=== PATIENT | female | born 1980 | race Caucasian/White ===

== ENCOUNTER 2020-03-25 11:15 | Emergency (ER) | payer OTHER, SELFPAY ==
[2020-03-25 12:34] VITALS: BP 140/74; PULSE 75; RESP 14; TEMP 36.6; O2SAT 99; BMI 22.7
--- NOTE | 2020-03-25 12:54 | PC.NURSE ---
No c spine tenderness. no abrasions/bruising to face. states l side of face is painful and l side of body. Equal grasps. No neuro deficits.
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
[2020-03-25] MEDS: LORazepam 0.5 MG TABLET PO (13:54)
[2020-03-25 14:17] LABS: UPreg QC Valid YES; Urine Pregnancy NEGATIVE (NEGATIVE)
[2020-03-25 15:01] VITALS: BP 114/62; PULSE 67; RESP 16; TEMP 37; O2SAT 96
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
== END 2020-03-25 16:45 | disposition home or self-care (01) ==
PROVIDERS: Nurse Practitioner Primary Care; Emergency Provider Emergency Medicine; PCP Internal Medicine
DX: S16.1XXA Strain of muscle, fascia and tendon at neck level, initial encounter (principal); S00.90XA Unspecified superficial injury of unspecified part of head, initial encounter; M54.2 Cervicalgia; G44.309 Post-traumatic headache, unspecified, not intractable; V43.52XA Car driver injured in collision with other type car in traffic accident, initial encounter; Y93.9 Activity, unspecified; Y92.410 Unspecified street and highway as the place of occurrence of the external cause
CPT/HCPCS: 70450; 72125; 81025; 99283; 99284

== ENCOUNTER 2020-04-12 10:06 | Outpatient (REF) | payer OTHER, SELFPAY ==
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
== END 2020-04-12 10:07 | disposition home or self-care (01) ==
LOC: HO.HMGCX 10:06
PROVIDERS: PCP Internal Medicine; Visit Provider Nurse Practitioner Family
DX: M54.2 Cervicalgia (principal)
CPT/HCPCS: 72040

== ENCOUNTER 2020-04-12 13:08 | Emergency (ER) | payer OTHER, SELFPAY ==
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
[2020-04-12 13:27] VITALS: BP 129/78; PULSE 69; RESP 14; TEMP 36.9; O2SAT 97; BMI 23.5
== END 2020-04-12 14:15 | disposition home or self-care (01) ==
PROVIDERS: Emergency Provider Emergency Medicine; PCP Internal Medicine
DX: S16.1XXA Strain of muscle, fascia and tendon at neck level, initial encounter (principal); M54.2 Cervicalgia; M54.5 Low back pain; V43.52XA Car driver injured in collision with other type car in traffic accident, initial encounter; Y93.9 Activity, unspecified; Y92.410 Unspecified street and highway as the place of occurrence of the external cause; Y99.9 Unspecified external cause status; Z79.899 Other long term (current) drug therapy
CPT/HCPCS: 99283

== ENCOUNTER 2020-08-20 19:45 | Emergency (ER) | payer OTHER, SELFPAY ==
--- NOTE | ~2020-08-20 | XR_ITS ---
EXAMINATION: Left fifth digit. CLINICAL INFORMATION: Trauma. Laceration. COMPARISON: None TECHNIQUE: 3 views of the left fifth digit. FINDINGS: There is a bandage over the distal finger. There is a soft tissue laceration of the distal fifth finger. There is no radiopaque foreign body. There is no osseous abnormality. There is no fracture or dislocation. XR/XR finger LT min 2V IMPRESSION: Soft tissue laceration of the distal fifth finger. No radiopaque foreign body. No acute osseous abnormality.
[2020-08-20 19:46] VITALS: BP 141/75; PULSE 64; RESP 18; TEMP 36.8; O2SAT 100; BMI 23.0
--- NOTE | 2020-08-20 20:32 | ED.WOUNDLAC ---
HPI - Wound/Laceration General Chief Complaint: Wound/Laceration Stated Complaint: Finger lac Source: patient Mode of arrival: ambulatory Limitations: no limitations History of Present Illness HPI narrative: 40-year-old female with no significant past medical history presents with laceration to the left 5th finger. She was cutting vegetables, slipped with her dull knife and cut the tip of her finger. She was able to clean the wound and applied a pressure dressing however bleeding would not stop. It is unknown when her last Tdap vaccine given. She does not report any other concerning symptoms. Onset (ago): hour(s) (Within the hour of arrival) Extremity Location: left: hand (Fifth finger) Place: home Patient tetanus UTD: No Context: accidental Associated symptoms: pain Treatments prior to arrival: bandage Related Data Home Medications Medication Instructions Recorded Confirmed albuterol sulfate 90 mcg/actuation INHALATION 04/12/20 aerosol inhaler cephalexin 500 mg capsule 500 mg PO Q6H 04/12/20 fluticasone 55 mcg-salmeterol 14 1 inh INHALATION BID 04/12/20 mcg/actuation breath activated powder fluticasone propionate 50 INTRANASAL 04/12/20 mcg/actuation nasal spray,suspension lorazepam 0.5 mg tablet 0.5 mg PO 04/12/20 norethindrone (contraceptive) 0.35 mg PO 04/12/20 mg tablet Previous Rx's Medication Instructions Recorded cyclobenzaprine 10 mg PO TID PRN #20 tab 03/25/20 ibuprofen 800 mg PO Q8H PRN #30 tab 03/25/20 gjkmikronu-eqmhgpzfmugwr-hlbv 1 cap PO Q8H PRN #14 cap 04/12/20 [Fioricet] cyclobenzaprine 5 mg tablet 5 mg PO TID PRN #14 tab 04/12/20 lidocaine [Lidoderm] 1 patch TOPICAL DAILY #15 ea 04/12/20 naproxen 500 mg tablet 500 mg PO BID PRN #60 tab 04/12/20 ondansetron 4 mg disintegrating 4 mg PO Q6H PRN #20 tab 04/12/20 tablet ibuprofen 800 mg PO TID PRN #60 tab 08/20/20 Allergies Allergy/AdvReac Type Severity Reaction Status Date / Time acetaminophen [From TYLENOL] Allergy Unknown NAUSEA & Verified 04/12/20 09:31 VOMITING duloxetine [Cymbalta] Allergy Unknown diarrhea Verified 04/12/20 09:31 Review of Systems Review of Systems: Constitutional: No Fever, No Chills ENT/Mouth: No Ear Pain, No Hoarseness, No sore throat Eyes: No Eye Pain, No Swelling, No Redness, No Foreign Body Cardiovascular: No Chest Pain, No SOB Respiratory: No Cough, No Dyspnea Gastrointestinal: No Nausea, No Vomiting, No Diarrhea, No abdominal Pain Genitourinary: No Dysuria, No Hematuria Musculoskeletal: positive left finger pain, No Myalgias, No Joint Swelling Skin: Positive left finger laceration, No rash Neuro: No Weakness, No Numbness, No Paresthesias, No Loss of Consciousness, No Dizziness, No Headache Psych: No Anxiety/Panic, No Depression Heme/Lymph: no easy bruising, no Lymphadenopathy Endocrine: No Polyuria, No Polydipsia Yes all other systems are reviewed and are negative [facility] Past Medical History Attestation statement: The following information was validated with the patient. Source: old records reviewed Medical History Anxiety No known health problems Surgical History No pertinent past surgical history Family History Family History Father No problems noted. Mother No problems noted. Paternal Grandmother Diabetes mellitus Paternal Grandfather Diabetes mellitus Son No problems noted. Son No problems noted. Son No problems noted. Social History Social History Alcohol intake: never Smoking Status: Current every day smoker Smoked in Last 30 Days: No Substance Use Type: Marijuana Advance Directives: No Advance Directives Information Provided: Yes Physical Exam Vital Signs: Vital Signs: Last Vital Signs Temp 98.3 F 08/20/20 19:46 Pulse 64 08/20/20 19:46 Resp 18 08/20/20 19:46 BP 141/75 H 08/20/20 19:46 Pulse Ox 100 08/20/20 19:46 Body Mass Index 23.0 Appearance: Alert. Oriented X3. No acute distress. Eyes: Pupils equal, round and reactive to light. ENT: Pharynx normal. Neck: Normal inspection. Neck supple. CVS: Normal heart rate and rhythm. Pulses normal. Respiratory: No respiratory distress. Breath sounds normal. Abdomen: Soft and nontender. Skin: Positive 2 cm laceration to the tip of the left 5th finger, brisk capillary refill, no nail bed involvement. Skin warm and dry. Normal skin color. Normal skin turgor. Extremities: No lower extremity edema. Full range of motion to all extremities, no indication of tendon injury. Neuro: No motor deficit. No sensory deficit. Course Course Course Narrative: 40-year-old female with no significant past medical history presents with an accidental laceration to the left tip of her 5th finger. Plan of care is for x-ray and for laceration repair. Patient has brisk capillary refill and full range of motion without tendon injury to all digits. We will update Tdap vaccine today. X-ray negative for bone involvement and foreign body. Prepped and draped in sterile fashion. Patient tolerated procedure well. Please refer to procedure note for details. Approximately 30 minutes after laceration repair, patient continues to have full range of motion, no indication of tendon injury, brisk capillary refill to digits. Patient did verbalize understanding wound care, signs and symptoms indicating infection. Patient verbalized understanding of and agrees home. Procedures Laceration Laceration 1: Site: hand Side (If applicable): left Size (cm): 2 Description: linear Depth: simple, single layer Local Anesthetic: lidocaine 2% Amount of anesthesia used (mL): 2 Pre-repair: wound explored, irrigated extensively and deep structures intact Skin layer closed with: nylon Size (cm): 5-0 Number of sutures: 5 Technique: simple, interrupted MDM - Wound/Laceration Differential Diagnosis Differential diagnosis: Likely laceration Medical Records Attestation: I reviewed the patient's medical records. Imaging Data Fifth finger left: Attestation: I personally reviewed and interpreted this imaging study as follows: Radiologist's impression: EXAMINATION: Left fifth digit. CLINICAL INFORMATION: Trauma. Laceration. COMPARISON: None TECHNIQUE: 3 views of the left fifth digit. FINDINGS: There is a bandage over the distal finger. There is a soft tissue laceration of the distal fifth finger. There is no radiopaque foreign body. There is no osseous abnormality. There is no fracture or dislocation. XR/XR finger LT min 2V IMPRESSION: Soft tissue laceration of the distal fifth finger. No radiopaque foreign body. No acute osseous abnormality. Discharge Plan Discharge Clinical Impression: Finger laceration Qualifiers: Encounter type: initial encounter Finger: little finger Damage to nail status: without damage Foreign body presence: without foreign body Laterality: left Qualified Code(s): S61.217A - Laceration without foreign body of left little finger without damage to nail, initial encounter Patient Disposition: Home, Self-Care Instructions: Finger Laceration (ED) Additional Instructions: You were evaluated for laceration to the left 5th finger. We applied 5 sutures. Please monitor for signs and symptoms of infection. If you notice fevers, chills, and drainage, swelling, redness, or any other concerning symptoms please seek medical attention. Please return in 7-10 days to have sutures removed. Do not submerse your hand under water for lengthy periods of time. Please keep the area clean and dry. We updated your Tdap vaccine today. Please take Tylenol and Motrin as needed for pain management. We prescribed ibuprofen 800 mg every 8 hours as needed. Thank you for choosing this emergency department for evaluation. Please follow-up with primary care physician as needed. Return to the emergency department for any new, concerning, or worsening symptoms. Prescriptions: New ibuprofen 800 mg tablet 800 mg PO TID PRN (Reason: pain) Qty: 60 RF: 0 No Action cyclobenzaprine 10 mg tablet 10 mg PO TID PRN (Reason: muscle spasm) Qty: 20 RF: 0 ibuprofen 800 mg tablet 800 mg PO Q8H PRN (Reason: pain) Qty: 30 RF: 0 lidocaine [Lidoderm] 5 % adhesive patch,medicated 1 patch topical DAILY Qty: 15 RF: 0 [id number]-nvlsbrsjvcfyo-sfra [Fioricet] 50-300-40 mg capsule 1 cap PO Q8H PRN (Reason: headache ) Qty: 14 RF: 0 albuterol sulfate 90 mcg/actuation HFA aerosol inhaler inhalation RF: 0 fluticasone propion-salmeterol 55-14 mcg/actuation aerosol powdr breath activated 1 inh inhalation BID RF: 0 norethindrone (contraceptive) 0.35 mg tablet PO RF: 0 cephalexin 500 mg capsule 500 mg PO Q6H RF: 0 lorazepam 0.5 mg tablet 0.5 mg PO RF: 0 fluticasone propionate 50 mcg/actuation spray,suspension intranasal RF: 0 ondansetron 4 mg tablet,disintegrating 4 mg PO Q6H PRN (Reason: nausea and vomiting) Qty: 20 RF: 0 cyclobenzaprine 5 mg tablet 5 mg PO TID PRN (Reason: muscle spasm) Qty: 14 RF: 0 naproxen 500 mg tablet 500 mg PO BID PRN (Reason: pain) Qty: 60 RF: 0 Interventions: ED Discharge Assessment Last Done: 08/20/20 21:43 Discharge Date/Time: 08/20/20 21:27
[2020-08-20] MEDS: Lidocaine HCl 2 % MPF 5 ML VIAL SUBCUT (21:23)
[2020-08-20] MEDS: Ibuprofen 800 MG TABLET PO (21:31)
== END 2020-08-20 21:27 | disposition home or self-care (01) ==
PROVIDERS: Emergency Provider Internal Medicine; PCP Internal Medicine
DX: S61.217A Laceration without foreign body of left little finger without damage to nail, initial encounter (principal); M79.642 Pain in left hand; W26.0XXA Contact with knife, initial encounter; Y93.G3 Activity, cooking and baking; Y92.000 Kitchen of unspecified non-institutional (private) residence as the place of occurrence of the external cause; Y99.9 Unspecified external cause status; F17.200 Nicotine dependence, unspecified, uncomplicated; Z71.6 Tobacco abuse counseling; Z79.899 Other long term (current) drug therapy
CPT/HCPCS: 12001; 73140; 90471; 90715; 96372; 99284

== ENCOUNTER 2021-01-29 08:18 | Emergency (ER) | payer OTHER, SELFPAY ==
[2021-01-29 08:48] VITALS: BP 142/90; PULSE 80; RESP 17; TEMP 37.3; O2SAT 98; BMI 22.7
--- NOTE | 2021-01-29 09:07 | ED_ITS ---
HPI - General Adult General Chief complaint: General Medical Stated complaint: rash Time Seen by Provider: 01/29/21 09:01 Source: patient Mode of arrival: ambulatory History of Present Illness HPI narrative: 40 y.o. F presenting to the ED with concern for rash x 4 days. 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 SHe did buy a facial powder but the irritation started prior to that. SHe has been itching and at 3 a.m. noticed increased swelling to her face from the itching. She did drink coffee and denies loss of taste, difficulty swallowing. At times her voice gets hoarse. Related Data Home Medications Medication Instructions Recorded Confirmed albuterol sulfate 90 mcg/actuation INHALATION 04/12/20 aerosol inhaler cephalexin 500 mg capsule 500 mg PO Q6H 04/12/20 fluticasone 55 mcg-salmeterol 14 1 inh INHALATION BID 04/12/20 mcg/actuation breath activated powder fluticasone propionate 50 INTRANASAL 04/12/20 mcg/actuation nasal spray,suspension lorazepam 0.5 mg tablet 0.5 mg PO 04/12/20 norethindrone (contraceptive) 0.35 mg PO 04/12/20 mg tablet Previous Rx's Medication Instructions Recorded cyclobenzaprine 10 mg tablet 10 mg PO TID PRN #20 tab 03/25/20 ibuprofen 800 mg tablet 800 mg PO Q8H PRN #30 tab 03/25/20 qmpprisyym-rvacmubfiwjac-efcduawt 1 cap PO Q8H PRN #14 cap 04/12/20 50 mg-300 mg-40 mg capsule (Fioricet) cyclobenzaprine 5 mg tablet 5 mg PO TID PRN #14 tab 04/12/20 lidocaine 5 % topical patch 1 patch TOPICAL DAILY #15 ea 04/12/20 (Lidoderm) naproxen 500 mg tablet 500 mg PO BID PRN #60 tab 04/12/20 ondansetron 4 mg disintegrating 4 mg PO Q6H PRN #20 tab 04/12/20 tablet ibuprofen 800 mg tablet 800 mg PO TID PRN #60 tab 08/20/20 cephalexin 500 mg capsule 500 mg PO QID 7 Days #28 cap 01/29/21 diphenhydramine-zinc acetate 1 1 appl TOPICAL QID PRN #28.3 g 01/29/21 %-0.1 % topical cream (Benadryl Itch Stopping) Allergies Allergy/AdvReac Type Severity Reaction Status Date / Time acetaminophen [From TYLENOL] Allergy Unknown NAUSEA & Verified 04/12/20 09:31 VOMITING duloxetine [Cymbalta] Allergy Unknown diarrhea Verified 04/12/20 09:31 Review of Systems Constitutional: Constitutional: Denies fever(s) and Denies headache(s) Eyes: Eyes: Reports no additional eye complaints ENT: Denies dysphagia, Denies headache(s) and Denies nasal congestion Comments: facial swelling Cardiovascular: Cardiovascular: Denies chest pain and Denies dyspnea Respiratory: Respiratory: Denies dyspnea Gastrointestinal: Gastrointestinal: Denies abdominal pain and Denies dysphagia Genitourinary: Genitourinary: Reports no additional female genitourinary complaints Musculoskeletal: Musculoskeletal: Denies arthralgias Neurologic: Denies confusion and Denies headache(s) Psychiatric: Psychiatric: Denies confusion Hematologic/Lymphatic: Hematologic/Lymphatic: Denies easy bleeding PMFSH Past Medical History Medical History Anxiety No known health problems Surgical History No pertinent past surgical history Family History Family History Father No problems noted. Mother No problems noted. Paternal Grandmother Diabetes mellitus Paternal Grandfather Diabetes mellitus Son No problems noted. Son No problems noted. Son No problems noted. Social History Social History (Updated 01/29/21 @ 09:19 by LAILA Serrato) Alcohol intake: never Patient Tobacco Use Status: Current everyday Tobacco user Substance Use Type: Marijuana Advance Directives: No Advance Directives Information Provided: No Patient : No Current occupation: works as a [employer] Physical Exam Vital Signs: Vital Signs: Last Vital Signs Temp 99.1 F 01/29/21 08:48 Pulse 80 01/29/21 08:48 Resp 17 01/29/21 08:48 BP 142/90 H 01/29/21 08:48 Pulse Ox 98 01/29/21 08:48 Body Mass Index 22.7 Const: Other: sitting upright in chair General: No confusion Orientation/consciousness: patient oriented x3 and No confusion HENMT: Other: scab marking to left temporal scalp with some redness, no fluctuance, no draianage or discharge multiple scab markings to mandible and one on central forehead, some redness surrounding lesions on mandible, not uticarial, not vesicular, no oral lesions, no perioral lesions, no weeping, no petechiae no pharyngeal erythema or lesions, no tonsilar hypertrophy Ears: hearing grossly normal bilaterally Eyes: Pupils: Equal, round and reactive pupils present Neck: Neck: Yes full ROM, Yes no lymphadenopathy, Yes no meningeal signs and Yes trachea midline Resp: Other: no stridor or wheezing Effort & Inspection: normal respiratory effort and able to speak in complete sentences Cardio: Other: normal peripheral perfusion GI: Inspection: No distended Skin: Other: as noted on facial exam Neuro: General: patient oriented x3, no meningeal signs and No confusion Cranial nerves: Yes Equal, round and reactive pupils present Extrem: General: Yes full ROM Medical Decision Making MDM Narrative Medical decision making narrative: 40 y.o. F presenting to the ED with facial rash and irritation, + itching no pain, noticed increased facial swelling since 3 a.m. no airway compromise, no difficulty swallowing or speaking VS significant for initial tachycardia most likely secondary to her anxiety- pt. is anxious, otherwise hemodynamically stable NO petechial rash, no signs of systemic illness doubt menningitis. No evidence of Geovani Gaurav syndrome, no oral involvement, no involvement of palms or soles. NO systemic signs of illness, afebrile. No uticarial rash to suggest allergic rxn. No airway involvement, airway patent, speaking in full clear sentences, no stridor or wheezing. No swelling to suggest an abscess. No evidence of ludiwgs. Doubt [employer], RPA-pharynx is WNL. Pt. has some lesions with surrounding erythema to the inferior aspect of her mandible, will tx with antibiotics and topical benadryl cream for itching. -Discussed strict return precautions with her - avoid itching. Discharge Plan Discharge Clinical Impression: Rash Patient Disposition: Home, Self-Care Instructions: Acute Rash (ED) Additional Instructions: PLease return to the emergency department if symptoms were to worsen, increased swelling, difficulty swallowing, pain, fevers, worsening rash, or any other concerning symptoms. Use benadryl cream on the areas to help with the itching. Take antibiotics to prevent superimposed infection. Prescriptions: New Benadryl Itch Stopping 1-0.1 % cream 1 appl topical QID PRN (Reason: itching) Qty: 28.3 RF: 0 cephalexin 500 mg capsule 500 mg PO QID 7 Days Qty: 28 RF: 0 No Action cyclobenzaprine 10 mg tablet 10 mg PO TID PRN (Reason: muscle spasm) Qty: 20 RF: 0 ibuprofen 800 mg tablet 800 mg PO Q8H PRN (Reason: pain) Qty: 30 RF: 0 lidocaine [Lidoderm] 5 % adhesive patch,medicated 1 patch topical DAILY Qty: 15 RF: 0 cxswiccbrs-plvwoezclwseu-yuaz [Fioricet] 50-300-40 mg capsule 1 cap PO Q8H PRN (Reason: headache ) Qty: 14 RF: 0 ibuprofen 800 mg tablet 800 mg PO TID PRN (Reason: pain) Qty: 60 RF: 0 albuterol sulfate 90 mcg/actuation HFA aerosol inhaler inhalation RF: 0 fluticasone propion-salmeterol 55-14 mcg/actuation aerosol powdr breath activated 1 inh inhalation BID RF: 0 norethindrone (contraceptive) 0.35 mg tablet PO RF: 0 cephalexin 500 mg capsule 500 mg PO Q6H RF: 0 lorazepam 0.5 mg tablet 0.5 mg PO RF: 0 fluticasone propionate 50 mcg/actuation spray,suspension intranasal RF: 0 ondansetron 4 mg tablet,disintegrating 4 mg PO Q6H PRN (Reason: nausea and vomiting) Qty: 20 RF: 0 cyclobenzaprine 5 mg tablet 5 mg PO TID PRN (Reason: muscle spasm) Qty: 14 RF: 0 naproxen 500 mg tablet 500 mg PO BID PRN (Reason: pain) Qty: 60 RF: 0 Interventions: ED Discharge Assessment Last Done: 01/29/21 09:23 Discharge Date/Time: 01/29/21 09:23
== END 2021-01-29 09:23 | disposition home or self-care (01) ==
PROVIDERS: Emergency Provider Emergency Medicine; PCP Internal Medicine
DX: L50.0 Allergic urticaria (principal); F17.200 Nicotine dependence, unspecified, uncomplicated; Z71.6 Tobacco abuse counseling; Z79.899 Other long term (current) drug therapy
CPT/HCPCS: 99283

== ENCOUNTER 2021-03-10 19:09 | Emergency (ER) | payer OTHER, SELFPAY ==
[2021-03-10 19:42] VITALS: BP 129/79; PULSE 74; RESP 16; TEMP 36.2; O2SAT 99; BMI 23.0
--- NOTE | 2021-03-10 20:18 | ED.WOUNDLAC ---
HPI - Wound/Laceration General Chief Complaint: Wound/Laceration Stated Complaint: Finger lac Time Seen by Provider: 03/10/21 20:18 Source: patient Mode of arrival: ambulatory Limitations: no limitations History of Present Illness HPI narrative: Patient was cutting an apple and got left index finger sliced off with loss of skin no deeper injury bleeding Well controlled Related Data Home Medications Medication Instructions Recorded Confirmed albuterol sulfate 90 mcg/actuation INHALATION 04/12/20 aerosol inhaler cephalexin 500 mg capsule 500 mg PO Q6H 04/12/20 fluticasone 55 mcg-salmeterol 14 1 inh INHALATION BID 04/12/20 mcg/actuation breath activated powder fluticasone propionate 50 INTRANASAL 04/12/20 mcg/actuation nasal spray,suspension norethindrone (contraceptive) 0.35 mg PO 04/12/20 mg tablet Previous Rx's Medication Instructions Recorded cyclobenzaprine 10 mg tablet 10 mg PO TID PRN #20 tab 03/25/20 ibuprofen 800 mg tablet 800 mg PO Q8H PRN #30 tab 03/25/20 [id number]-wthpqjjilsdoy-kuwcmseb 1 cap PO Q8H PRN #14 cap 04/12/20 50 mg-300 mg-40 mg capsule (Fioricet) cyclobenzaprine 5 mg tablet 5 mg PO TID PRN #14 tab 04/12/20 lidocaine 5 % topical patch 1 patch TOPICAL DAILY #15 ea 04/12/20 (Lidoderm) naproxen 500 mg tablet 500 mg PO BID PRN #60 tab 04/12/20 ondansetron 4 mg disintegrating 4 mg PO Q6H PRN #20 tab 04/12/20 tablet ibuprofen 800 mg tablet 800 mg PO TID PRN #60 tab 08/20/20 cephalexin 500 mg capsule 500 mg PO QID 7 Days #28 cap 01/29/21 diphenhydramine-zinc acetate 1 1 appl TOPICAL QID PRN #28.3 g 01/29/21 %-0.1 % topical cream (Benadryl Itch Stopping) prednisone 20 mg tablet 20 mg PO .COMPLEX #18 tab 01/30/21 sulfamethoxazole 800 1 tab PO BID #14 tab 01/30/21 mg-trimethoprim 160 mg tablet (Bactrim DS) lorazepam 0.5 mg tablet 0.5 mg PO DAILY #10 tab 03/02/21 Allergies Allergy/AdvReac Type Severity Reaction Status Date / Time acetaminophen [From TYLENOL] Allergy Unknown NAUSEA & Verified 04/12/20 09:31 VOMITING duloxetine [Cymbalta] Allergy Unknown diarrhea Verified 04/12/20 09:31 Review of Systems Review of Systems: Yes all other systems are reviewed and are negative [facility] Past Medical History Medical History Anxiety No known health problems Surgical History No pertinent past surgical history Family History Family History Father No problems noted. Mother No problems noted. Paternal Grandmother Diabetes mellitus Paternal Grandfather Diabetes mellitus Son No problems noted. Son No problems noted. Son No problems noted. Social History Social History Alcohol intake: never Patient Tobacco Use Status: Current everyday Tobacco user Substance Use Type: Marijuana Advance Directives: No Advance Directives Information Provided: No Current occupation: works as a [employer] Physical Exam Vital Signs: Vital Signs: Last Vital Signs Temp 97.1 F 03/10/21 19:42 Pulse 74 03/10/21 19:42 Resp 16 03/10/21 19:42 BP 129/79 03/10/21 19:42 Pulse Ox 99 03/10/21 19:42 Body Mass Index 23.0 Const: General: no acute distress and well developed Extrem: Hand/finger images: 1. Small superficial laceration with skin loss MDM - Wound/Laceration MDM Narrative Medical decision making narrative: Superficial laceration with skin loss silver nitrate was applied to stop the bleeding discharge patient home with a Band-Aid Discharge Plan Discharge Clinical Impression: Laceration of finger Qualifiers: Encounter type: initial encounter Finger: little finger Damage to nail status: without damage Foreign body presence: without foreign body Laterality: left Qualified Code(s): S61.217A - Laceration without foreign body of left little finger without damage to nail, initial encounter Patient Disposition: Home, Self-Care Instructions: Laceration Without Closure (ED) Additional Instructions: Local care as advised Prescriptions: No Action lorazepam 0.5 mg tablet 0.5 mg PO DAILY Qty: 10 RF: 0 cyclobenzaprine 10 mg tablet 10 mg PO TID PRN (Reason: muscle spasm) Qty: 20 RF: 0 ibuprofen 800 mg tablet 800 mg PO Q8H PRN (Reason: pain) Qty: 30 RF: 0 lidocaine [Lidoderm] 5 % adhesive patch,medicated 1 patch topical DAILY Qty: 15 RF: 0 [id number]-ksrzkdkyeenxd-owbk [Fioricet] 50-300-40 mg capsule 1 cap PO Q8H PRN (Reason: headache ) Qty: 14 RF: 0 ibuprofen 800 mg tablet 800 mg PO TID PRN (Reason: pain) Qty: 60 RF: 0 Benadryl Itch Stopping 1-0.1 % cream 1 appl topical QID PRN (Reason: itching) Qty: 28.3 RF: 0 cephalexin 500 mg capsule 500 mg PO QID 7 Days Qty: 28 RF: 0 albuterol sulfate 90 mcg/actuation HFA aerosol inhaler inhalation RF: 0 fluticasone propion-salmeterol 55-14 mcg/actuation aerosol powdr breath activated 1 inh inhalation BID RF: 0 norethindrone (contraceptive) 0.35 mg tablet PO RF: 0 cephalexin 500 mg capsule 500 mg PO Q6H RF: 0 fluticasone propionate 50 mcg/actuation spray,suspension intranasal RF: 0 ondansetron 4 mg tablet,disintegrating 4 mg PO Q6H PRN (Reason: nausea and vomiting) Qty: 20 RF: 0 cyclobenzaprine 5 mg tablet 5 mg PO TID PRN (Reason: muscle spasm) Qty: 14 RF: 0 naproxen 500 mg tablet 500 mg PO BID PRN (Reason: pain) Qty: 60 RF: 0 prednisone 20 mg tablet 20 mg PO .COMPLEX Qty: 18 RF: 0 sulfamethoxazole-trimethoprim [Bactrim DS] 800-160 mg tablet 1 tab PO BID Qty: 14 RF: 0
[2021-03-10] MEDS: Ibuprofen 600 MG TABLET PO (21:16)
[2021-03-10] MEDS: Silver Nitrate Applicator STICK..EA. 1 APPL TOPICAL (21:17)
== END 2021-03-10 21:30 | disposition home or self-care (01) ==
PROVIDERS: Emergency Provider Internal Medicine; PCP Internal Medicine
DX: S61.217A Laceration without foreign body of left little finger without damage to nail, initial encounter (principal); S61.211A Laceration without foreign body of left index finger without damage to nail, initial encounter; F17.200 Nicotine dependence, unspecified, uncomplicated; F12.90 Cannabis use, unspecified, uncomplicated; W26.0XXA Contact with knife, initial encounter; Y93.9 Activity, unspecified; Y92.9 Unspecified place or not applicable; Y99.9 Unspecified external cause status; Z71.6 Tobacco abuse counseling; Z79.899 Other long term (current) drug therapy
CPT/HCPCS: 99283

== ENCOUNTER → 2021-08-04 14:14 | Outpatient (RCR) | payer OTHER, SELFPAY ==
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
--- NOTE | 2020-05-26 10:21 | MHC.PT.DC ---
[facility] [place] Office [place] Office [place] Office [address] Kenneth Cadet [address] [phone] F: [phone] F: [phone] F: [phone] F: [phone] Physical Therapy Discharge Report Diagnosis: Cervicalgia Date of Surgery: NA Date of Evaluation: 05/13/20 Date of Discharge: 05/26/20 Treatments to Date: 1 Cancellations to Date: 3 No Shows to Date: 2 Discharge Status: Visit Non-compliance Discharge Summary: Pt discharged from therapy for non compliance. Pt had her evaluation 2 weeks back and canceled 3 times and no showed 2 times since. Pt therefore d/c from therapy. Electronically signed by: Alessandra Zaragoza DPT Please sign and return to therapist. Thank you for your referral.
== END | disposition home or self-care (01) ==
LOC: HO.PT 05-13 11:07
PROVIDERS: PCP Internal Medicine; Visit Provider Internal Medicine
DX: M54.2 Cervicalgia (principal)
CPT/HCPCS: 97110; 97161

== ENCOUNTER 2021-12-24 12:11 | Emergency (ER) | payer OTHER, SELFPAY ==
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
[2021-12-24 12:21] VITALS: BP 153/62; PULSE 76; RESP 16; TEMP 36.6; O2SAT 98; BMI 23.0
[2021-12-24 12:41] LABS: UPreg QC Valid YES; Urine Pregnancy NEGATIVE (NEGATIVE)
[2021-12-24] MEDS: diazePAM 2 MG TABLET PO (12:55)
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
[2021-12-24 13:53] LABS: MANUAL DIFF FLAG NO
[2021-12-24 13:54] LABS: Basophils Absolute Auto 0.1 X10*3/uL (0.0-0.2); Basophils Percent Auto 0.6 % (0-2); Eosinophils Percent Auto 0.3 % (0-4); Hematocrit 37.3 % (37.0-47.0); Imm Gran Abs Auto 0.02 X10*3/uL (0.00-0.03); Imm Gran Pct Auto 0.2 % (0.0-0.4); Lymphocytes Absolute Auto 1.6 X10*3/uL (1.2-4.9); Mean Corpuscular HGB Conc 34.9 g/dl (31.0-35.0); Mean Corpuscular Hemoglobin 31.9 pg (27.0-33.0); Mean Corpuscular Volume 91.6 fL (80.0-98.0); Mean Platelet Volume 10.3 fL (9.4-12.3); Monocytes Absolute Auto 0.5 X10*3/uL (0.1-1.2); Monocytes Percent Auto 6.3 % (2-11); Neutrophils Absolute Auto 6.3 x10*3/uL (2.0-8.3); Neutrophils Percent Auto 73.6 % (45-73); Platelet Count 224 X10*3/uL (160-400); Red Blood Count 4.07 X10*6/uL (4.20-5.50); Red Cell Distribution Width 13.1 % (11.0-16.0); White Blood Count 8.6 X10*3/uL (4.8-10.8)
[2021-12-24 14:08] LABS: Anion Gap 11 (12-20); Blood Urea Nitrogen 8 mg/dL (9-16); Calcium 8.9 mg/dL (8.4-10.2); Carbon Dioxide 23 mmol/L (22-29); Chloride 111 mmol/L (96-108); Creatinine Clr Calc Pharmacy 98.3; Estimated Glomerular Filt Rate > 60; Glucose Random 123 mg/dL (60-115); Sodium 141 mmol/L (135-145)
== END 2021-12-24 14:35 | disposition home or self-care (01) ==
PROVIDERS: Physician Assistant Medical; Emergency Provider Emergency Medicine; PCP Internal Medicine
DX: S06.0X9A Concussion with loss of consciousness of unspecified duration, initial encounter (principal); S90.121A Contusion of right lesser toe(s) without damage to nail, initial encounter; S83.91XA Sprain of unspecified site of right knee, initial encounter; S01.01XA Laceration without foreign body of scalp, initial encounter; G44.309 Post-traumatic headache, unspecified, not intractable; M54.2 Cervicalgia; M25.562 Pain in left knee; M79.671 Pain in right foot; F12.90 Cannabis use, unspecified, uncomplicated; Y04.2XXA Assault by strike against or bumped into by another person, initial encounter; Y93.9 Activity, unspecified; Y92.9 Unspecified place or not applicable; Y99.9 Unspecified external cause status; Z79.899 Other long term (current) drug therapy; F17.200 Nicotine dependence, unspecified, uncomplicated; Z71.6 Tobacco abuse counseling
CPT/HCPCS: 36415; 70450; 70486; 72125; 73564; 73630; 80048; 81025; 82550; 85025; 99282; 99283

== ENCOUNTER 2022-02-12 14:20 | Emergency (ER) | payer OTHER, SELFPAY ==
[2022-02-12 14:26] VITALS: BP 150/96; PULSE 91; RESP 18; TEMP 36.7; O2SAT 99; BMI 23.5
[2022-02-12 14:41] LABS: Appearance Urine Clear; Color Urine Yellow; Glucose Urine UA Negative (Negative); Leukocyte Esterase Urine Negative (Negative); Nitrite Urine Negative (Negative); PH 5.5 (5.0-9.0); Specific Gravity - Urine >= 1.030 (1.005-1.025); Urine Blood Negative (Negative); Urine Ketones 40 mg/dL (Negative); Urine Protein 30 (1+) mg/dL (Neg-Trace)
[2022-02-12 14:42] LABS: UPreg QC Valid YES; Urine Pregnancy NEGATIVE (NEGATIVE)
[2022-02-12 14:46] LABS: Bacteria Urine Trace (None Seen); Hyaline Casts Urine 0-2 /LPF (0-2); RBC Urine 0-2 /HPF (0-2); WBC Urine 0-5 /HPF (0-5)
--- NOTE | 2022-02-12 15:03 | ECG_ITS ---
Test Reason : VOMITING Blood Pressure : / mmHG Vent. Rate : 081 BPM Atrial Rate : 081 BPM P-R Int : 132 ms QRS Dur : 094 ms QT Int : 356 ms P-R-T Axes : 000 044 060 degrees QTc Int : 413 ms Normal sinus rhythm with sinus arrhythmia Minimal voltage criteria for LVH, may be normal variant ( [place]idan product ) Septal infarct , age undetermined Abnormal ECG When compared with ECG of 27-JUL-2019 13:33, No significant change was found Referred By: Viriidana Machuca Electronically Signed By:IBIS WOODARD
--- NOTE | 2022-02-12 15:10 | ED.GENADULT ---
HPI - General Adult General Chief complaint: General Medical Stated complaint: Vomiting/Lower abd pain Time Seen by Provider: 02/12/22 14:55 Source: patient Mode of arrival: ambulatory Limitations: no limitations History of Present Illness HPI narrative: Patient comes emergency room complaining dizziness scribed this lightheadedness, nausea, 1 episode of vomiting and 1 episode of diarrhea. The patient concerned that she may be as she has inconsistent brownish spotting. Patient states that she also has foul brownish vaginal discharge. Patient states that she is not sure if she forgot to remove a tampon. Denies any concerns with STDs Related Data Home Medications Medication Instructions Recorded Confirmed cephalexin 500 mg capsule 500 mg PO Q6H 04/12/20 fluticasone 55 mcg-salmeterol 14 1 inh inhalation BID 04/12/20 mcg/actuation breath activated powder fluticasone propionate 50 intranasal 04/12/20 mcg/actuation nasal spray,suspension norethindrone (contraceptive) 0.35 mg PO 04/12/20 mg tablet Previous Rx's Medication Instructions Recorded cyclobenzaprine 10 mg tablet 10 mg PO TID PRN muscle spasm #20 03/25/20 tabs ibuprofen 800 mg tablet 800 mg PO Q8H PRN pain #30 tabs 03/25/20 ohorptfxht-prhosvryaowmb-bgzilbem 1 cap PO Q8H PRN headache #14 caps 04/12/20 50 mg-300 mg-40 mg capsule (Fioricet) cyclobenzaprine 5 mg tablet 5 mg PO TID PRN muscle spasm #14 04/12/20 tabs lidocaine 5 % topical patch 1 patch topical DAILY #15 ea 04/12/20 (Lidoderm) naproxen 500 mg tablet 500 mg PO BID PRN pain #60 tabs 04/12/20 ondansetron 4 mg disintegrating 4 mg PO Q6H PRN nausea and 04/12/20 tablet vomiting #20 tabs ibuprofen 800 mg tablet 800 mg PO TID PRN pain #60 tabs 08/20/20 cephalexin 500 mg capsule 500 mg PO QID 7 days #28 caps 01/29/21 diphenhydramine-zinc acetate 1 1 appl topical QID PRN itching 01/29/21 %-0.1 % topical cream (Benadryl #28.3 grams Itch Stopping) prednisone 20 mg tablet 20 mg PO .COMPLEX #18 tabs 01/30/21 sulfamethoxazole 800 1 tab PO BID #14 tabs 01/30/21 mg-trimethoprim 160 mg tablet (Bactrim DS) ibuprofen 200 mg tablet 200 mg PO Q6H PRN pain #30 tabs 03/10/21 albuterol sulfate 90 mcg/actuation 2 inh inhalation Q4-6H #8.5 grams 06/14/21 aerosol inhaler lorazepam 0.5 mg tablet 0.5 mg PO DAILY anxiety #10 tabs 06/14/21 cyclobenzaprine 10 mg tablet 10 mg PO Q8H PRN Muscle spasm #14 12/24/21 tabs ondansetron 4 mg disintegrating 4 mg PO Q6H PRN nausea and 02/12/22 tablet vomiting #10 tabs Allergies Allergy/AdvReac Type Severity Reaction Status Date / Time acetaminophen [From TYLENOL] Allergy Unknown NAUSEA & Verified 04/12/20 09:31 VOMITING duloxetine [Cymbalta] Allergy Unknown diarrhea Verified 04/12/20 09:31 Review of Systems Review of Systems: Constitutional : No Weight loss, No Fever, No Chills, No Night Sweats, No Fatigue, No Malaise ENT/Mouth : No Hearing loss, No Ear Pain, No Nasal Congestion, No Sinus Pain, No Hoarseness, No sore throat, No Rhinorrhea, No Swallowing Difficulty Eyes: No Eye Pain, No Swelling, No Redness, No Foreign Body, No Discharge, No Vision Changes Cardiovascular : No Chest Pain, No SOB, No Dyspnea on Exertion, No Orthopnea, No Edema, No Palpitations Respiratory : No Cough, No Sputum, No Wheezing, No Smoke Exposure, No Dyspnea Gastrointestinal : No Nausea, No Vomiting, No Diarrhea, No Constipation, No abdominal Pain, No Hematochezia, No Melena Genitourinary : Complaining of brownish spotting, vaginal bleeding, No Dysuria, No Urinary Frequency, No Hematuria, No Urinary Incontinence, No Urgency, No Flank Pain, No Urinary Flow Changes, No Hesitancy Musculoskeletal : No joint pain, No Myalgias, No Joint Swelling Skin : No Skin Lesions, No rash Neuro : No Weakness, No Numbness, No Paresthesias, No Loss of Consciousness, No Dizziness, No Headache Psych : No Anxiety/Panic, No Depression, No SI/HI/AH/VH, No Social Issues, Heme/Lymph: No Bruising, No Bleeding,No Lymphadenopathy Endocrine : No Polyuria, No Polydipsia, No Temperature Intolerance [facility] Past Medical History Medical History Anxiety No known health problems Surgical History No pertinent past surgical history Family History Family History Father No problems noted. Mother No problems noted. Paternal Grandmother Diabetes mellitus Paternal Grandfather Diabetes mellitus Son No problems noted. Son No problems noted. Son No problems noted. Social History Social History Alcohol intake: never Patient Tobacco Use Status: Current everyday Tobacco user Substance Use Type: Marijuana Advance Directives: No Advance Directives Information Provided: No Current occupation: works as a [employer] Physical Exam ED Vital Signs: Vital Signs - 24 hr 02/12/22 14:26 02/12/22 16:18 02/12/22 16:18 Temperature 98.1 F Pulse Rate 91 62 64 Respiratory Rate 18 Blood Pressure 150/96 H 123/65 131/74 Pulse Oximetry 99 Oxygen Delivery Method Room Air 02/12/22 16:20 Temperature Pulse Rate 73 Respiratory Rate Blood Pressure 119/82 Pulse Oximetry Oxygen Delivery Method BMI result Body Mass Index 23.5 Const Other: Appearance: Alert. Oriented X3. No acute distress. Eyes: Pupils equal, round and reactive to light. ENT: Pharynx normal. Neck: Normal inspection. Neck supple. No lymph nodes noted. No crepitus CVS: Normal heart rate and rhythm. Pulses normal. Normal S1 and S2 Respiratory: No respiratory distress. Breath sounds normal. No Wheezing. No rales Abdomen: Soft and nontender. No rigidity. No distention. : Brownish bloody discharge, mild to moderate, no foul odor, no retained foreign body/tampon, no cervical motion tenderness. There is 1 3 mm cervical cyst at the 6 o'clock position Skin: Skin warm and dry. Normal skin color. Normal skin turgor. Extremities: No lower extremity edema. No Lacerations. No Rash Neuro: Oriented X 3. No motor deficit. No sensory deficit. Moving all extremities. No slurred speech. CN 2 through 12 grossly intact Psych: calm, cooperative, normal affect Course Course Course Narrative: Patient received IV fluids, Zofran, patient states that she feels very well now, asymptomatic, ready for discharge. Urine has trace leukocyte esterase, patient has no UTI symptoms. Patient has squamous epithelial cells present, likely a contaminant. At this time, since patient does not have UTI symptoms, we will not treat with antibiotic. Serology for STDs pending. Discussed with patient that it will take a few days for the results to come back, if they are positive, she will receive a phone call and medication will be sent to her pharmacy. Patient agrees with plan. I discussed the cervical cyst with the patient, patient states that she has had it since she was approximately 14 years old. Has already been assessed by OBGYN, has an appointment for a Pap smear next week Medical Decision Making Lab Data Result diagrams: 02/12/22 15:15 02/12/22 15:15 Labs: Lab Results 02/12/22 02/12/22 02/12/22 Range/Units 14:34 14:35 15:15 WBC 10.8 (4.8-10.8) X10*3/uL RBC 4.43 (4.20-5.50) X10*6/uL Hgb 14.2 (12.0-16.0) g/dl Hct 40.7 (37.0-47.0) % MCV 91.9 (80.0-98.0) fL MCH 32.1 (27.0-33.0) pg MCHC 34.9 (31.0-35.0) g/dl RDW 13.0 (11.0-16.0) % Plt Count 213 (160-400) X10*3/uL MPV 10.5 (9.4-12.3) fL Immature Gran % (Auto) 0.3 (0.0-0.4) % Neut % (Auto) 79.6 H (45-73) % Lymph % (Auto) 14.0 L (20-40) % [place] % (Auto) 5.6 (2-11) % Eos % (Auto) 0.1 (0-4) % Baso % (Auto) 0.4 (0-2) % Lymph # (Auto) 1.5 (1.2-4.9) X10*3/uL [place] # (Auto) 0.6 (0.1-1.2) X10*3/uL Eos # (Auto) 0.0 (0.0-0.4) X10*3/uL Baso # (Auto) 0.0 (0.0-0.2) X10*3/uL Abs Immat Gran (auto) 0.03 (0.00-0.03) X10*3/uL Absolute Neuts (auto) 8.6 H (2.0-8.3) x10*3/uL Absolute Nucleated RBC 0.000 (0.0-0.012) X10*3/uL Nucleated RBC % (auto) 0.0 (0.0-0.2) /100WBC Sodium (135-145) mmol/L Potassium (3.3-5.1) mmol/L Chloride (96-108) mmol/L Carbon Dioxide (22-29) mmol/L Anion Gap (12-20) BUN (9-16) mg/dL Creatinine (0.5-1.4) mg/dL Estim Creat Clear Calc Estimated GFR Random Glucose (60-115) mg/dL Calcium (8.4-10.2) mg/dL Total Bilirubin (0.0-1.0) mg/dL Direct Bilirubin (0.0-0.5) mg/dL AST (5-31) U/L ALT (0-31) U/L Alkaline Phosphatase (39-117) U/L Troponin I High Sens (<3.5-17.0) ng/L Total Protein (6.5-8.0) g/dL Albumin (3.5-5.0) g/dL Urine Color Yellow Urine Appearance Clear Urine pH 5.5 (5.0-9.0) Ur Specific [place] >= 1.030 H (1.005-1.025) Urine Protein 30 (1+) H (Neg-Trace) mg/dL Urine Glucose (UA) Negative (Negative) mg/dL Urine Ketones 40 (Negative) mg/dL Urine Blood Negative (Negative) Urine Nitrite Negative (Negative) Ur Leukocyte Esterase Negative (Negative) Urine RBC 0-2 (0-2) /HPF Urine WBC 0-5 (0-5) /HPF Ur Squamous Epith Cells 6-10 (0-2) /HPF Urine Bacteria Trace (None Seen) Hyaline Casts 0-2 (0-2) /LPF Urine Test NEGATIVE (NEGATIVE) Urine Opiates Screen (Not Detect) Urine Fentanyl Screen (Not Detect) Ur Barbiturates Screen (Not Detect) Ur Phencyclidine Scrn (Not Detect) Ur Amphetamines Screen (Not Detect) U Benzodiazepines Scrn (Not Detect) Urine Cocaine Screen (Not Detect) U Marijuana (THC) Screen (Not Detect) 02/12/22 02/12/22 02/12/22 Range/Units 15:15 15:15 16:47 WBC (4.8-10.8) X10*3/uL RBC (4.20-5.50) X10*6/uL Hgb (12.0-16.0) g/dl Hct (37.0-47.0) % MCV (80.0-98.0) fL MCH (27.0-33.0) pg MCHC (31.0-35.0) g/dl RDW (11.0-16.0) % Plt Count (160-400) X10*3/uL MPV (9.4-12.3) fL Immature Gran % (Auto) (0.0-0.4) % Neut % (Auto) (45-73) % Lymph % (Auto) (20-40) % [place] % (Auto) (2-11) % Eos % (Auto) (0-4) % Baso % (Auto) (0-2) % Lymph # (Auto) (1.2-4.9) X10*3/uL [place] # (Auto) (0.1-1.2) X10*3/uL Eos # (Auto) (0.0-0.4) X10*3/uL Baso # (Auto) (0.0-0.2) X10*3/uL Abs Immat Gran (auto) (0.00-0.03) X10*3/uL Absolute Neuts (auto) (2.0-8.3) x10*3/uL Absolute Nucleated RBC (0.0-0.012) X10*3/uL Nucleated RBC % (auto) (0.0-0.2) /100WBC Sodium 138 (135-145) mmol/L Potassium 4.7 (3.3-5.1) mmol/L Chloride 103 (96-108) mmol/L Carbon Dioxide 24 (22-29) mmol/L Anion Gap 16 (12-20) BUN 15 D (9-16) mg/dL Creatinine 0.86 (0.5-1.4) mg/dL Estim Creat Clear Calc 84.5 Estimated GFR > 60 Random Glucose 90 (60-115) mg/dL Calcium 9.9 D (8.4-10.2) mg/dL Total Bilirubin 1.2 H (0.0-1.0) mg/dL Direct Bilirubin 0.4 (0.0-0.5) mg/dL AST 18 (5-31) U/L ALT 17 (0-31) U/L Alkaline Phosphatase 46 (39-117) U/L Troponin I High Sens 10.0 (<3.5-17.0) ng/L Total Protein 7.2 (6.5-8.0) g/dL Albumin 4.5 (3.5-5.0) g/dL Urine Color Yellow Urine Appearance Clear Urine pH 5.5 (5.0-9.0) Ur Specific [place] >= 1.030 H (1.005-1.025) Urine Protein Negative (Neg-Trace) mg/dL Urine Glucose (UA) Negative (Negative) mg/dL Urine Ketones 80 (Negative) mg/dL Urine Blood Negative (Negative) Urine Nitrite Negative (Negative) Ur Leukocyte Esterase Trace H (Negative) Urine RBC 0-2 (0-2) /HPF Urine WBC 0-5 (0-5) /HPF Ur Squamous Epith Cells 3-5 (0-2) /HPF Urine Bacteria Trace (None Seen) Hyaline Casts 0-2 (0-2) /LPF Urine Test (NEGATIVE) Urine Opiates Screen (Not Detect) Urine Fentanyl Screen (Not Detect) Ur Barbiturates Screen (Not Detect) Ur Phencyclidine Scrn (Not Detect) Ur Amphetamines Screen (Not Detect) U Benzodiazepines Scrn (Not Detect) Urine Cocaine Screen (Not Detect) U Marijuana (THC) Screen (Not Detect) 02/12/22 Range/Units 16:47 WBC (4.8-10.8) X10*3/uL RBC (4.20-5.50) X10*6/uL Hgb (12.0-16.0) g/dl Hct (37.0-47.0) % MCV (80.0-98.0) fL MCH (27.0-33.0) pg MCHC (31.0-35.0) g/dl RDW (11.0-16.0) % Plt Count (160-400) X10*3/uL MPV (9.4-12.3) fL Immature Gran % (Auto) (0.0-0.4) % Neut % (Auto) (45-73) % Lymph % (Auto) (20-40) % [place] % (Auto) (2-11) % Eos % (Auto) (0-4) % Baso % (Auto) (0-2) % Lymph # (Auto) (1.2-4.9) X10*3/uL [place] # (Auto) (0.1-1.2) X10*3/uL Eos # (Auto) (0.0-0.4) X10*3/uL Baso # (Auto) (0.0-0.2) X10*3/uL Abs Immat Gran (auto) (0.00-0.03) X10*3/uL Absolute Neuts (auto) (2.0-8.3) x10*3/uL Absolute Nucleated RBC (0.0-0.012) X10*3/uL Nucleated RBC % (auto) (0.0-0.2) /100WBC Sodium (135-145) mmol/L Potassium (3.3-5.1) mmol/L Chloride (96-108) mmol/L Carbon Dioxide (22-29) mmol/L Anion Gap (12-20) BUN (9-16) mg/dL Creatinine (0.5-1.4) mg/dL Estim Creat Clear Calc Estimated GFR Random Glucose (60-115) mg/dL Calcium (8.4-10.2) mg/dL Total Bilirubin (0.0-1.0) mg/dL Direct Bilirubin (0.0-0.5) mg/dL AST (5-31) U/L ALT (0-31) U/L Alkaline Phosphatase (39-117) U/L Troponin I High Sens (<3.5-17.0) ng/L Total Protein (6.5-8.0) g/dL Albumin (3.5-5.0) g/dL Urine Color Urine Appearance Urine pH (5.0-9.0) Ur Specific [place] (1.005-1.025) Urine Protein (Neg-Trace) mg/dL Urine Glucose (UA) (Negative) mg/dL Urine Ketones (Negative) mg/dL Urine Blood (Negative) Urine Nitrite (Negative) Ur Leukocyte Esterase (Negative) Urine RBC (0-2) /HPF Urine WBC (0-5) /HPF Ur Squamous Epith Cells (0-2) /HPF Urine Bacteria (None Seen) Hyaline Casts (0-2) /LPF Urine Test (NEGATIVE) Urine Opiates Screen Not Detected (Not Detect) Urine Fentanyl Screen Not Detected (Not Detect) Ur Barbiturates Screen Not Detected (Not Detect) Ur Phencyclidine Scrn Not Detected (Not Detect) Ur Amphetamines Screen Not Detected (Not Detect) U Benzodiazepines Scrn Not Detected (Not Detect) Urine Cocaine Screen Not Detected (Not Detect) U Marijuana (THC) Screen POSITIVE H (Not Detect) Discharge Plan Discharge Clinical Impression: Nausea, vomiting and diarrhea Patient Disposition: Home, Self-Care Instructions: Acute Nausea and Vomiting (ED) Additional Instructions: Please follow-up with your primary care physician tomorrow. If you have any worsening or new symptoms, please return to the emergency room or call 911 Prescriptions: New ondansetron 4 mg tablet,disintegrating 4 mg PO Q6H PRN (Reason: nausea and vomiting) Qty: 10 0RF No Action lorazepam 0.5 mg tablet 0.5 mg PO DAILY Qty: 10 0RF albuterol sulfate 90 mcg/actuation HFA aerosol inhaler 2 inh inhalation Q4-6H Qty: 8.5 2RF cyclobenzaprine 10 mg tablet 10 mg PO TID PRN (Reason: muscle spasm) Qty: 20 0RF ibuprofen 800 mg tablet 800 mg PO Q8H PRN (Reason: pain) Qty: 30 0RF lidocaine [Lidoderm] 5 % adhesive patch,medicated 1 patch topical DAILY Qty: 15 0RF Rx Instructions: leave on most painful area for up to 12 hrs rztqqkuddi-sqgokunkiisoz-nypv [Fioricet] 50-300-40 mg capsule 1 cap PO Q8H PRN (Reason: headache ) Qty: 14 0RF ibuprofen 800 mg tablet 800 mg PO TID PRN (Reason: pain) Qty: 60 0RF Benadryl Itch Stopping 1-0.1 % cream 1 appl topical QID PRN (Reason: itching) Qty: 28.3 0RF cephalexin 500 mg capsule 500 mg PO QID 7 Days Qty: 28 0RF cyclobenzaprine 10 mg tablet 10 mg PO Q8H PRN (Reason: Muscle spasm) Qty: 14 0RF ibuprofen 200 mg tablet 200 mg PO Q6H PRN (Reason: pain) Qty: 30 0RF fluticasone propion-salmeterol 55-14 mcg/actuation aerosol powdr breath activated 1 inh inhalation BID norethindrone (contraceptive) 0.35 mg tablet PO cephalexin 500 mg capsule 500 mg PO Q6H fluticasone propionate 50 mcg/actuation spray,suspension intranasal ondansetron 4 mg tablet,disintegrating 4 mg PO Q6H PRN (Reason: nausea and vomiting) Qty: 20 0RF cyclobenzaprine 5 mg tablet 5 mg PO TID PRN (Reason: muscle spasm) Qty: 14 0RF naproxen 500 mg tablet 500 mg PO BID PRN (Reason: pain) Qty: 60 0RF prednisone 20 mg tablet 20 mg PO .COMPLEX Qty: 18 0RF Rx Instructions: 20 mg PO 3 p.o. daily for 3 days followed by 2 p.o. daily for 3 days followed by 1 p.o. daily for 3 days; sulfamethoxazole-trimethoprim [Bactrim DS] 800-160 mg tablet 1 tab PO BID Qty: 14 0RF
[2022-02-12 15:20] LABS: MANUAL DIFF FLAG NO
[2022-02-12] MEDS: 0.9 % Sodium Chloride 1,000 ML 999 ML IVCONT (15:20)
[2022-02-12] MEDS: ondansetron HCL 4 MG/2 ML VIAL IVPUSH (15:20)
[2022-02-12 15:21] LABS: Basophils Percent Auto 0.4 % (0-2); Eosinophils Percent Auto 0.1 % (0-4); Hematocrit 40.7 % (37.0-47.0); Hemoglobin 14.2 g/dl (12.0-16.0); Imm Gran Abs Auto 0.03 X10*3/uL (0.00-0.03); Imm Gran Pct Auto 0.3 % (0.0-0.4); Lymphocytes Absolute Auto 1.5 X10*3/uL (1.2-4.9); Mean Corpuscular HGB Conc 34.9 g/dl (31.0-35.0); Mean Corpuscular Hemoglobin 32.1 pg (27.0-33.0); Mean Corpuscular Volume 91.9 fL (80.0-98.0); Mean Platelet Volume 10.5 fL (9.4-12.3); Monocytes Absolute Auto 0.6 X10*3/uL (0.1-1.2); Monocytes Percent Auto 5.6 % (2-11); Neutrophils Absolute Auto 8.6 x10*3/uL (2.0-8.3); Neutrophils Percent Auto 79.6 % (45-73); Platelet Count 213 X10*3/uL (160-400); Red Blood Count 4.43 X10*6/uL (4.20-5.50); White Blood Count 10.8 X10*3/uL (4.8-10.8)
[2022-02-12 15:37] LABS: Alanine Aminotransferase 17 U/L (0-31); Albumin Level 4.5 g/dL (3.5-5.0); Alkaline Phosphatase 46 U/L (39-117); Anion Gap 16 (12-20); Aspartate Amino Transferase 18 U/L (5-31); Bilirubin Direct 0.4 mg/dL (0.0-0.5); Bilirubin Total 1.2 mg/dL (0.0-1.0); Blood Urea Nitrogen 15 mg/dL (9-16); Calcium 9.9 mg/dL (8.4-10.2); Carbon Dioxide 24 mmol/L (22-29); Chloride 103 mmol/L (96-108); Creatinine Clr Calc Pharmacy 84.5; Estimated Glomerular Filt Rate > 60; Glucose Random 90 mg/dL (60-115); Potassium 4.7 mmol/L (3.3-5.1); Sodium 138 mmol/L (135-145); Total Protein 7.2 g/dL (6.5-8.0)
[2022-02-12 16:18] VITALS: BP 123/65; BP 131/74; PULSE 62; PULSE 64
[2022-02-12 16:20] VITALS: BP 119/82; PULSE 73
[2022-02-12 17:03] LABS: Appearance Urine Clear; Color Urine Yellow; Glucose Urine UA Negative (Negative); Leukocyte Esterase Urine Trace (Negative); Nitrite Urine Negative (Negative); PH 5.5 (5.0-9.0); Specific Gravity - Urine >= 1.030 (1.005-1.025); Urine Blood Negative (Negative); Urine Ketones 80 mg/dL (Negative); Urine Protein Negative (Neg-Trace)
[2022-02-12 17:13] LABS: Bacteria Urine Trace (None Seen); Hyaline Casts Urine 0-2 /LPF (0-2); RBC Urine 0-2 /HPF (0-2); WBC Urine 0-5 /HPF (0-5)
[2022-02-12 17:19] LABS: Amphetamine Screen Urine Not Detected (Not Detect); Barbiturates, Urine Not Detected (Not Detect); Benzodiazepines Screen Urine Not Detected (Not Detect); Cannabinoid Screen Urine POSITIVE (Not Detect); Cocaine Screen Urine Not Detected (Not Detect); Fentanyl, urine Not Detected (Not Detect); Opiate Screen Urine Not Detected (Not Detect); Phencyclidine Screen Urine Not Detected (Not Detect)
[2022-02-13 01:19] LABS: CT PCR NOT DETECTED (Not Detect.); NG PCR NOT DETECTED (Not Detect.)
[2022-02-13 11:02] LABS: BV Int Neg Control Negative (Negative); BV Int Pos Control Positive (Positive)
== END 2022-02-12 17:53 | disposition home or self-care (01) ==
PROVIDERS: Emergency Provider Emergency Medicine; PCP Internal Medicine
DX: N76.0 Acute vaginitis (principal); R11.2 Nausea with vomiting, unspecified; R19.7 Diarrhea, unspecified; F17.200 Nicotine dependence, unspecified, uncomplicated; F12.90 Cannabis use, unspecified, uncomplicated; Z79.899 Other long term (current) drug therapy
CPT/HCPCS: 36415; 80048; 80076; 80307; 81001; 81003; 81025; 84484; 85025; 87480; 87491; 87510; 87591; 87660; 93005; 96361; 96374; 99284; J2405

== ENCOUNTER 2022-05-17 09:26 | Outpatient (REF) | payer OTHER, SELFPAY ==
[2022-05-17 11:49] LABS: Cholesterol 215 mg/dL; HDL Cholesterol 61 mg/dL; LDL Cholesterol Calculated 141 mg/dl; Triglycerides 67 mg/dL
[2022-05-17 12:10] LABS: TSH reflex Free T4 0.51 uIU/mL (0.32-4.0)
== END 2022-05-17 09:27 | disposition home or self-care (01) ==
LOC: HO.HMGCLDS 09:26
PROVIDERS: PCP Internal Medicine; Visit Provider Internal Medicine
DX: Z00.00 Encounter for general adult medical examination without abnormal findings (principal); G56.03 Carpal tunnel syndrome, bilateral upper limbs
CPT/HCPCS: 36415; 80061; 84443

== ENCOUNTER 2022-05-23 13:34 | Outpatient (REF) | payer OTHER, SELFPAY ==
--- NOTE | 2022-05-23 09:00 | EMG_ITS ---
Please see scanned EMG / Nerve Conduction Report. MTDD
== END 2022-05-23 13:35 | disposition home or self-care (01) ==
LOC: HO.NEURO 13:34
PROVIDERS: PCP Internal Medicine; Visit Provider Internal Medicine
DX: G56.03 Carpal tunnel syndrome, bilateral upper limbs (principal)
CPT/HCPCS: 95885; 95913

== ENCOUNTER 2022-09-12 16:59 | Emergency (ER) | payer OTHER, SELFPAY ==
[2022-09-12 17:20] LABS: MANUAL DIFF FLAG NO
[2022-09-12 17:28] LABS: Basophils Percent Auto 0.7 % (0-2); Eosinophils Absolute Auto 0.1 X10*3/uL (0.0-0.4); Eosinophils Percent Auto 0.8 % (0-4); Hematocrit 37.6 % (37.0-47.0); Hemoglobin 13.1 g/dl (12.0-16.0); Imm Gran Abs Auto 0.01 X10*3/uL (0.00-0.03); Imm Gran Pct Auto 0.2 % (0.0-0.4); Lymphocytes Absolute Auto 2.3 X10*3/uL (1.2-4.9); Lymphocytes Percent Auto 37.7 % (20-40); Mean Corpuscular HGB Conc 34.8 g/dl (31.0-35.0); Mean Corpuscular Hemoglobin 32.4 pg (27.0-33.0); Mean Corpuscular Volume 93.1 fL (80.0-98.0); Mean Platelet Volume 10.4 fL (9.4-12.3); Monocytes Absolute Auto 0.4 X10*3/uL (0.1-1.2); Monocytes Percent Auto 5.9 % (2-11); Neutrophils Absolute Auto 3.3 x10*3/uL (2.0-8.3); Neutrophils Percent Auto 54.7 % (45-73); Platelet Count 234 X10*3/uL (160-400); Red Blood Count 4.04 X10*6/uL (4.20-5.50); Red Cell Distribution Width 12.8 % (11.0-16.0); White Blood Count 6.1 X10*3/uL (4.8-10.8)
[2022-09-12 17:34] LABS: Prothrombin Time 11.4 SEC (10.0-13.1)
[2022-09-12 17:36] LABS: Partial Thromboplastin Time 27.8 SEC (26.0-36.4)
[2022-09-12 17:38] LABS: Alanine Aminotransferase 13 U/L (0-31); Albumin Level 4.3 g/dL (3.5-5.0); Alkaline Phosphatase 50 U/L (39-117); Anion Gap 13 (12-20); Aspartate Amino Transferase 15 U/L (5-31); Bilirubin Direct 0.2 mg/dL (0.0-0.5); Bilirubin Total 0.8 mg/dL (0.0-1.0); Blood Urea Nitrogen 14 mg/dL (9-16); Calcium 9.1 mg/dL (8.4-10.2); Carbon Dioxide 25 mmol/L (22-29); Chloride 106 mmol/L (96-108); Estimated Glomerular Filt Rate > 60; Glucose Random 89 mg/dL (60-115); Potassium 3.9 mmol/L (3.3-5.1); Sodium 140 mmol/L (135-145); Total Protein 6.5 g/dL (6.5-8.0)
[2022-09-12 17:44] VITALS: BP 123/68; PULSE 62; RESP 18; TEMP 36.8; O2SAT 98; BMI 22.7
--- NOTE | 2022-09-12 17:50 | ED.GENADULT ---
HPI - General Adult General Chief complaint: General Medical Stated complaint: blood in stool Related Data Home Medications Medication Instructions Recorded Confirmed norethindrone (contraceptive) 0.35 0.35 mg PO DAILY 09/13/22 09/13/22 mg tablet Allergies Allergy/AdvReac Type Severity Reaction Status Date / Time acetaminophen [From TYLENOL] Allergy Unknown NAUSEA & Verified 09/13/22 10:08 VOMITING duloxetine [Cymbalta] Allergy Unknown diarrhea Verified 09/13/22 10:08 REPLACED BY [facility] Past Medical History Medical History Anxiety No known health problems Surgical History No pertinent past surgical history Family History Family History Father No problems noted. Mother No problems noted. Paternal Grandmother Diabetes mellitus Paternal Grandfather Diabetes mellitus Son No problems noted. Son No problems noted. Son No problems noted. 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 Blood streaked stool and on toilet paper when she wiped. No hx hemorrhoids or GI bleed in the past. No recent constipation. Plan: CHANTEL, labs Medical Decision Making Lab Data 09/12/22 17:16 09/12/22 17:16 Labs: Lab Results 09/12/22 09/12/22 09/12/22 Range/Units 17:16 17:16 17:16 WBC 6.1 (4.8-10.8) X10*3/uL RBC 4.04 L (4.20-5.50) X10*6/uL Hgb 13.1 (12.0-16.0) g/dl Hct 37.6 (37.0-47.0) % MCV 93.1 (80.0-98.0) fL MCH 32.4 (27.0-33.0) pg MCHC 34.8 (31.0-35.0) g/dl RDW 12.8 (11.0-16.0) % Plt Count 234 (160-400) X10*3/uL MPV 10.4 (9.4-12.3) fL Immature Gran % (Auto) 0.2 (0.0-0.4) % Neut % (Auto) 54.7 (45-73) % Lymph % (Auto) 37.7 (20-40) % [place] % (Auto) 5.9 (2-11) % Eos % (Auto) 0.8 (0-4) % Baso % (Auto) 0.7 (0-2) % Lymph # (Auto) 2.3 (1.2-4.9) X10*3/uL [place] # (Auto) 0.4 (0.1-1.2) X10*3/uL Eos # (Auto) 0.1 (0.0-0.4) X10*3/uL Baso # (Auto) 0.0 (0.0-0.2) X10*3/uL Abs Immat Gran (auto) 0.01 (0.00-0.03) X10*3/uL Absolute Neuts (auto) 3.3 (2.0-8.3) x10*3/uL Absolute Nucleated RBC 0.000 (0.0-0.012) X10*3/uL Nucleated RBC % (auto) 0.0 (0.0-0.2) /100WBC PT 11.4 (10.0-13.1) SEC INR 1.0 (0.9-1.1) APTT 27.8 (26.0-36.4) SEC Sodium 140 (135-145) mmol/L Potassium 3.9 (3.3-5.1) mmol/L Chloride 106 (96-108) mmol/L Carbon Dioxide 25 (22-29) mmol/L Anion Gap 13 (12-20) BUN 14 (9-16) mg/dL Creatinine 0.80 (0.5-1.4) mg/dL Estim Creat Clear Calc TNP Estimated GFR > 60 Random Glucose 89 (60-115) mg/dL Calcium 9.1 D (8.4-10.2) mg/dL Magnesium 2.0 (1.6-2.6) mg/dL Total Bilirubin 0.8 (0.0-1.0) mg/dL Direct Bilirubin 0.2 (0.0-0.5) mg/dL AST 15 (5-31) U/L ALT 13 (0-31) U/L Alkaline Phosphatase 50 (39-117) U/L Total Protein 6.5 (6.5-8.0) g/dL Albumin 4.3 (3.5-5.0) g/dL Discharge Plan Discharge Clinical Impression: Rectal bleed Patient Disposition: Elopement Prescriptions: No Action norethindrone (contraceptive) 0.35 mg tablet 0.35 mg PO DAILY Interventions: ED Discharge Assessment Last Done: 09/12/22 20:58 Discharge Date/Time: 09/12/22 22:03
== END 2022-09-12 22:03 | disposition left against medical advice (07) ==
PROVIDERS: Physician Assistant; Emergency Provider Emergency Medicine
DX: K62.5 Hemorrhage of anus and rectum (principal); F17.200 Nicotine dependence, unspecified, uncomplicated; F12.90 Cannabis use, unspecified, uncomplicated
CPT/HCPCS: 36415; 80048; 80076; 83735; 85025; 85610; 85730; 99282; 99283

== ENCOUNTER 2022-12-20 12:17 | Outpatient (AMB) | payer OTHER, SELFPAY ==
[2022-12-20 12:19] VITALS: BP 104/62; PULSE 71; O2SAT 96; BMI 23.3
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
== END 2022-12-20 12:59 | disposition home or self-care (01) ==
PROVIDERS: PCP Internal Medicine; Visit Provider Internal Medicine
DX: M54.50 Low back pain, unspecified (principal); S06.0X0D Concussion without loss of consciousness, subsequent encounter; V89.2XXA Person injured in unspecified motor-vehicle accident, traffic, initial encounter
CPT/HCPCS: 99213

== ENCOUNTER 2024-02-24 09:16 | Emergency (ER) | payer MEDICAID, SELFPAY ==
--- NOTE | ~2024-02-24 | XR_ITS ---
EXAMINATION: XR CHEST CLINICAL INFORMATION: Shortness of breath COMPARISON: Chest radiograph 07/27/2019 TECHNIQUE: 2 views of the chest were obtained. FINDINGS: No significant abnormality is noted involving the heart, lungs, mediastinum, bony thorax or soft tissues. XR/XR chest 2V IMPRESSION: Unremarkable examination. Electronically signed by: Geovani Whalen MD 02/24/2024 11:51 AM EDT
[2024-02-24 09:29] VITALS: BP 125/60; PULSE 69; RESP 20; TEMP 37.2; O2SAT 98; BMI 24.3
--- NOTE | 2024-02-24 10:22 | ED_ITS ---
HPI - URI/Sore Throat General Chief Complaint: Upper Respiratory Symptoms Stated Complaint: Bronchitis Time Seen by Provider: 02/24/24 10:02 Source: patient Mode of arrival: ambulatory Limitations: no limitations History of Present Illness ED Provider: Valeria Maldonado PA-C HPI Narrative: 43F presents with multiple complaints. Patient states about a week ago she had URI symptoms with cough. She took OTC medications at that point which helped but symptoms did not fully remit. Presents today with a 1 day history of worsening cough, shortness of breath, throat pain, congestion and ear and eye pressure. States cough is nonproductive, but causes patient to sweat, additionally has chest pain which only occurs with coughing. Throat feels irritated from coughing , but denies any difficulty swallowing. Ears feel clogged, admits to putting qtips in ears to clean, but denies any trauma. Congestion and sinus pressure increasing, denies runny nose at this time. Admits nausea, decreased appetite, diarrhea. Denies vomiting, fever, chills, abdominal pain. She does report that family members have been sick with similar symptoms Patient states she has a history of asthma but PCP has stopped refilling her inhalers, additional history of smoking. Denies any current chest pain. MD elicited complaint: cough, sore throat, nasal congestion and sinus pain Pertinent past history: asthma Onset (ago): day(s) Consistency: progressively worsening Able to tolerate fluids by mouth: Yes Exacerbating factors: nothing Relieving factors: OTC cold medicine Associated symptoms: diaphoresis, nasal congestion, sore throat, cough, shortness of breath, nausea and diarrhea Treatments prior to arrival: none Related Data Previous Rx's ?Medication ?Instructions ?Recorded ibuprofen 800 mg tablet 800 mg PO Q8H #90 tabs 12/20/22 azithromycin 250 mg tablet See Rx Instructions PO .COMPLEX #6 02/24/24 tabs prednisone 20 mg tablet 40 mg (2 x 20 mg) PO DAILY 4 days 02/24/24 #8 tabs Allergies Allergy/AdvReac Type Severity Reaction Status Date / Time acetaminophen [From TYLENOL] Allergy Unknown NAUSEA & Verified 02/24/24 09:32 VOMITING duloxetine [Cymbalta] Allergy Unknown diarrhea Verified 02/24/24 09:32 Review of Systems Review of Systems: Yes all other systems are reviewed and are negative Constitutional: Constitutional: Denies body ache(s), Denies chills, Reports excessive sweating, Denies fever(s) and Reports poor appetite Eyes: Eyes: Reports itchy eyes Comments: pressure behind eyes bilaterally ENT: Reports nasal congestion, Denies nasal discharge, Reports sinus pressure and Reports sore throat Cardiovascular: Cardiovascular: Reports dyspnea Respiratory: Respiratory: Reports cough, Denies hemoptysis, Reports dyspnea and Denies wheezing Gastrointestinal: Gastrointestinal: Denies abdominal pain, Denies melena, Reports diarrhea, Reports nausea and Denies vomiting Endocrine: Endocrine: Reports excessive sweating Allergic/Immunologic: Allergic/Immunologic: Reports itchy eyes and Denies wheezing PMFSH Past Medical History Medical History Anxiety No known health problems Surgical History No pertinent past surgical history Family History Family History Father No problems noted. Mother No problems noted. Paternal Grandmother Diabetes mellitus Paternal Grandfather Diabetes mellitus Son No problems noted. Son No problems noted. Son No problems noted. 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 Cognitive needs: No Hearing needs: No Vision needs: No Physical Exam Vital Signs: Vital Signs: Last Vital Signs Temp 98.3 F 02/24/24 11:40 Pulse 97 02/24/24 11:40 Resp 18 02/24/24 11:40 BP 108/52 L 02/24/24 11:40 Pulse Ox 97 02/24/24 11:40 O2 Del Method Room Air 02/24/24 11:40 BMI result Body Mass Index 24.3 Const: General: cooperative, healthy appearing, no acute distress, alert, awake and Physically active; No acute distress Nutritional Appearance: well nourished Orientation/consciousness: patient oriented x3 Limitations: no limitations HEENT: Head: Yes normal to inspection, Yes normocephalic and Yes atraumatic Ears: hearing grossly normal bilaterally General nose exam: Normal external nose present Face and sinus: Yes normal facial exam Mouth: Normal oral and palatal mucosa present, oropharynx normal and moist mucous membranes Throat: Yes posterior oropharynx normal Eyes: General: appearance normal, both eyes and all related structures Eyelids: Yes eyelids normal Conjunctivae: conjunctivae normal Sclerae: sclerae normal Pupils: Equal, round and reactive pupils present EOM: EOMs intact bilaterally Neck: Neck: Yes normal visual inspection, Yes full ROM and Yes no lymphadenopathy Lymphatic: no lymphadenopathy noted Chest: Chest palpation & inspection: normal inspection of the chest Resp: Other: Lungs with coarse sounds in the left lower, no wheezes auscultated Effort & Inspection: able to speak in complete sentences, no audible wheezes, Actively coughing, no pursed lip breathing and no tripod positioning Auscultation: no wheezes Cardio: Rate: regular rate Rhythm: regular rhythm Heart sounds: S1 normal heart sound present and S2 normal heart sound present GI: Inspection: Yes normal to inspection Palpation (GI): nontender and no guarding Skin: General skin exam: no rashes or lesions noted Trauma: no lacerations or abrasions Wounds: no wounds Neuro: General: patient oriented x3 Cranial nerves: Yes Equal, round and reactive pupils present Extrem: General: Yes normal to inspection Right upper extremity: normal to inspection Left upper extremity: normal to inspection Right lower extremity: normal to inspection Left lower extremity: normal to inspection Course Reevaluation(s) Reevaluation #1: Chest x-ray reviewed, no consolidation seen. Viral swabs negative Patient feeling much better after receiving albuterol in the department as well as prednisone. Lung sounds clear to auscultation bilaterally. Will treat with prednisone, albuterol, and azithromycin. Given strict return precautions. She understands and agrees with plan. Patient stable for discharge. Time: 12:05 Medications Administered Discontinued Medications Generic Name Dose Route Start Last Admin Trade Name Freq PRN Reason Stop Dose Admin Albuterol Sulfate 4 puff 02/24/24 11:15 02/24/24 11:25 Albuterol Sulfate 90 Mcg 8 Gm Inhaler INHALE 02/24/24 11:16 4 puff ONCE ONE Administration Prednisone 40 mg 02/24/24 10:59 02/24/24 11:11 Prednisone 20 Mg Tablet PO 02/24/24 11:00 40 mg ONCE ONE Administration Medical Decision Making Medical Decision Making [facility] Narrative: This is a 43-year-old female, with a history of asthma, who presents emergency department with complaints of cough, sore throat, congestion x1 week, worsening since yesterday. On arrival, vital signs within normal limits. Lungs with coarse lung sounds in the left lower base. Differential diagnoses include viral URI, pneumonia, bronchitis, COVID. Plan: X-ray, viral swabs, ED bronch protocol, prednisone 40mg PO. Differential Diagnosis Differential Diagnoses: The differential diagnosis associated with the presentation includes See above Admission/Observation Consideration of admission/observation: Escalation of care including admission/observation considered Lab Data MDM Lab Attestation statement: I reviewed the patient's lab results. Negative viral swabs Labs: Lab Results 02/24/24 Range/Units 09:58 Influenza Type A (PCR) NEGATIVE (Negative) Influenza Type B (PCR) NEGATIVE (Negative) RSV RNA Qual (PCR) NEGATIVE (Negative) SARS-CoV-2 RNA (RT-PCR) NEGATIVE (Negative) Radiology Impression Discussion of test interpretation with radiology: I have reviewed the radiologist's reading. Radiologist Impression: EXAMINATION: XR CHEST CLINICAL INFORMATION: Shortness of breath COMPARISON: Chest radiograph 07/27/2019 TECHNIQUE: 2 views of the chest were obtained. FINDINGS: No significant abnormality is noted involving the heart, lungs, mediastinum, bony thorax or soft tissues. XR/XR chest 2V IMPRESSION: Unremarkable examination. Electronically signed by: Geovani Whalen MD 02/24/2024 11:51 AM EDT Discharge Plan Discharge Clinical Impression: Upper respiratory infection Patient Disposition: Home, Self-Care Instructions: Upper Respiratory Infection (ED) Additional Instructions: You were seen in the emergency department due to shortness breath cough. You likely have a virus that is causing have the symptoms however given your duration of symptoms, history of asthma, and smoking history, we will treat with an antibiotic. Please take prescribed azithromycin as directed, finish the entire course even if your symptoms improve. Continue using albuterol inhaler. Take prednisone as directed, start this tomorrow as you already received a dose today. If any new or worsening symptoms occur including but not limited to worsening shortness breath, chest pain, please seek emergent care. Follow-up with your primary care physician. Prescriptions: New prednisone 20 mg tablet 40 mg PO DAILY 4 Days Qty: 8 0RF azithromycin 250 mg tablet See Rx Instructions PO .COMPLEX Qty: 6 0RF Rx Instructions: For 250 mg dose pack: take 500 mg today (day 1), then 250 mg for 4 days (days 2-5) No Action ibuprofen 800 mg tablet 800 mg PO Q8H Qty: 90 0RF Stand Alone Forms: Work/School Release Print Language: Fijian
[2024-02-24 10:41] LABS: Influenza A PCR NEGATIVE (Negative); Influenza B PCR NEGATIVE (Negative); Resp Syncy Virus RNA Qual PCR NEGATIVE (Negative); SARS COV2 PCR INHOUSE NEGATIVE (Negative)
[2024-02-24] MEDS: predniSONE 20 MG TABLET 40 MG PO (11:11)
[2024-02-24] MEDS: Albuterol Sulfate 90 MCG 8 GM INHALER 4 PUFF INHALE (11:25)
[2024-02-24 11:26] VITALS: PULSE 64; O2SAT 99
[2024-02-24 11:40] VITALS: BP 108/52; PULSE 97; RESP 18; TEMP 36.8; O2SAT 97
[2024-02-24 12:23] VITALS: BP 108/52; PULSE 97; RESP 18; TEMP 36.8; O2SAT 97
== END 2024-02-24 12:24 | disposition home or self-care (01) ==
PROVIDERS: Emergency Provider Emergency Medicine; PCP Internal Medicine
DX: J06.9 Acute upper respiratory infection, unspecified (principal); J40 Bronchitis, not specified as acute or chronic; R06.02 Shortness of breath; F17.210 Nicotine dependence, cigarettes, uncomplicated; Z03.818 Encounter for observation for suspected exposure to other biological agents ruled out
CPT/HCPCS: 0241U; 71046; 94640; 94664; 99284

== ENCOUNTER 2024-02-27 12:42 | Emergency (ER) | payer OTHER, SELFPAY ==
--- NOTE | ~2024-02-27 | XR_ITS ---
EXAMINATION: XR CHEST CLINICAL INFORMATION: Left lower lobe congestion, cough COMPARISON: Chest radiograph 02/24/2024 TECHNIQUE: 2 views of the chest were obtained. FINDINGS: Lungs are well-expanded. No focal consolidation. No pleural effusions or pneumothorax. The cardiomediastinal silhouette is within normal limits. No acute osseous abnormality. XR/XR chest 2V IMPRESSION: No acute pulmonary disease. Electronically signed by: Gallo Hernandez MD 02/27/2024 04:27 PM EDT
[2024-02-27 13:01] VITALS: BP 146/80; PULSE 62; RESP 18; TEMP 36.6; O2SAT 96; BMI 24.3
--- NOTE | 2024-02-27 13:03 | ED_ITS ---
HPI - URI/Sore Throat General Chief Complaint: Upper Respiratory Symptoms Stated Complaint: Upper resp Time Seen by Provider: 02/27/24 16:39 Source: patient, RN notes reviewed and old records reviewed Mode of arrival: ambulatory Limitations: no limitations History of Present Illness ED Provider: Blayne Doll PA-C HPI Narrative: 43-year-old female with history of asthma, smoker who was recently seen here on 02/23 for cough and discharged with a Z-yoly and prednisone who presents to the ER for evaluation of ongoing cough, no improvement in her symptoms. She states her left lower lung is irritated from her coughing, she feels like she can not get the mucus out. 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 She denies any ongoing fevers, difficulty breathing although she does report when she has a coughing fit it can last 5-7 minutes and she has a hard time catching her breath. She was given a small albuterol inhaler that does not seem to be helpful. She has cut back on her smoking. She denies any ongoing fevers, nausea, vomiting, diarrhea or abdominal pain. MD elicited complaint: cough Pertinent past history: asthma Onset (ago): week(s) Consistency: progressively worsening Severity: moderate Able to tolerate fluids by mouth: Yes Exacerbating factors: other (Coughing) Relieving factors: nothing Associated symptoms: nasal congestion and cough Treatments prior to arrival: none Related Data Previous Rx's ?Medication ?Instructions ?Recorded ibuprofen 800 mg tablet 800 mg PO Q8H #90 tabs 12/20/22 azithromycin 250 mg tablet See Rx Instructions PO .COMPLEX #6 02/24/24 tabs prednisone 20 mg tablet 40 mg (2 x 20 mg) PO DAILY 4 days 02/24/24 #8 tabs albuterol sulfate 90 mcg/actuation 2 puff inhalation Q4-6H PRN 02/27/24 aerosol inhaler (Ventolin HFA) shortness of breath or wheezing #8.5 grams guaifenesin 1,200 mg tablet, 1,200 mg PO BID #10 tabs 02/27/24 extended release 12 hr (Mucinex) hydrocodone-homatropine 5 mg-1.5 5 ml PO Q6H PRN cough #60 mL 02/27/24 mg/5 mL oral syrup (Hycodan (with homatropine)) prednisone 10 mg tablet See Taper PO DIRECTED #19 tabs 02/27/24 Allergies Allergy/AdvReac Type Severity Reaction Status Date / Time acetaminophen [From TYLENOL] Allergy Unknown NAUSEA & Verified 02/27/24 13:03 VOMITING duloxetine [Cymbalta] Allergy Unknown diarrhea Verified 02/27/24 13:03 Review of Systems Review of Systems: Yes all other systems are reviewed and are negative [facility] Past Medical History Medical History Anxiety No known health problems Surgical History No pertinent past surgical history Family History Family History Father No problems noted. Mother No problems noted. Paternal Grandmother Diabetes mellitus Paternal Grandfather Diabetes mellitus Son No problems noted. Son No problems noted. Son No problems noted. 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 Oriented X3. No acute distress. Head: normocephalic, atraumatic. Eyes: Pupils equal, round and reactive to light. ENT: Pharynx normal. No tonsillar swelling or exudate. Neck: Normal inspection. Neck supple. CVS: Normal heart rate and rhythm. Pulses normal. Respiratory: No respiratory distress. Speaking in complete sentences, dry cough, left lower lobe with inspiratory and expiratory wheezes, mild expiratory wheeze in the right lower lobe as well. Abdomen: Soft and nontender. +BS x4 Skin: Skin warm and dry. Normal skin color. Normal skin turgor. No rashes. Extremities: No lower extremity edema. No joint swelling. Negative Homans sign Neuro/psych: Oriented X 3. No motor deficit. No sensory deficit. CN II-XII intact. Normal speech and cognition. Course Course Course Narrative: This is a Rapid Medical Examination (RME) performed by Blayne Reeves in triage. Full HPI, ROS, assessment and treatment plan per primary provider in the Main ED. 43 yo female presenting to the ER for ongoing URI symptoms and cough. seen here on and d/ c home with zpak and prednisone which she is taking. ongoing congestion, cough and pain in the LLL, unable to get out the phlegm. she is concerned she has pna Plan: repeat CXR Medications Administered Discontinued Medications Generic Name Dose Route Start Last Admin Trade Name Freq PRN Reason Stop Dose Admin Albuterol/Ipratropium 3 ml 02/27/24 16:44 02/27/24 16:57 Albuterol/Iprat 2.5/0.5mg 3 Ml Ampul.Neb INHALE 02/27/24 16:45 3 ml ONCE ONE Administration Medical Decision Making Medical Decision Making MDM Narrative: 43-year-old female who is an active smoker, history of asthma not currently on any treatments who presents to the ER for evaluation of ongoing cough, feeling of congestion in her left lower lobe with concern for pneumonia. On arrival to the ER she is oxygenating well, afebrile not tachycardic. She has a dry hacking cough. Repeat chest x-ray today does not show any evidence of pneumonia. She was given a DuoNeb for her wheezing with improvement in her symptoms. We discussed expected course for URI/bronchitis. Will add prednisone taper, refill her albuterol inhaler, and add Mucinex to her regimen. Will also add Hycodan so that she can sleep, as the cough is keeping her up at night. Work note provided per request. Stable for discharge home Differential Diagnosis Differential Diagnoses: The differential diagnosis associated with the presentation includes strep, covid, flu, rsv, other viral syndrome, bronchitis, pneumonia, asthma exacerbation, low suspicion for PE Independent Interpretation I performed an independent interpretation of an: Plain X-Ray Interpretation: Chest x-ray clear, no evidence of focal pneumonia Radiology Impression Discussion of test interpretation with radiology: I have reviewed the radiologist's reading. Radiologist Impression: XR/XR chest 2V IMPRESSION: No acute pulmonary disease. External Record Review External record reviewed: Outpatient record, Prior outpatient labs and Prior outpatient radiology Tests considered The following testing was considered but not selected: CTA considered, low clinical suspicion for pneumonia Prescription Management I considered prescription management with: Antibiotic and Other (Antitussive) Chronic Conditions Patient?s care impacted by: Other (Asthma) Critical Care Time Critical Care Time Critical Care Time: No Discharge Plan Discharge Clinical Impression: Bronchitis Patient Disposition: Home, Self-Care Instructions: Acute Bronchitis (ED) Additional Instructions: Your chest x-ray today was normal. Take the tapering dose of steroids to completion, complete the entire course as directed Recommend the prescribed Mucinex 2 times a day for 5 days. Use the albuterol inhaler every 4 hours as needed for shortness of breath or wheezing. Take the prescribed cough syrup as needed for coughing, do not drive after taking this medication. It has a narcotic and it can make you tired. Follow-up with your doctor. If you develop new or worsening symptoms call 911 or come back to the ER for further evaluation. Prescriptions: New albuterol sulfate [Ventolin HFA] 90 mcg/actuation HFA aerosol inhaler 2 puff inhalation Q4-6H PRN (Reason: shortness of breath or wheezing) Qty: 8.5 0RF guaifenesin [Mucinex] 1,200 mg tablet extended release 12hr 1,200 mg PO BID Qty: 10 0RF hydrocodone-homatropine [Hycodan (with homatropine)] 5-1.5 mg/5 mL syrup 5 ml PO Q6H PRN (Reason: cough) Qty: 60 0RF Rx Instructions: Partial Fill upon patient request. prednisone 10 mg tablet See Taper PO DIRECTED Qty: 19 0RF Taper: Prednisone 40 mg daily for 1 Day and 0 Hour 30 mg daily for 3 Days and 0 Hour 20 mg daily for 3 Days and 0 Hour 10 mg daily for 3 Days and 0 Hour Rx Instructions: see taper instructions No Action prednisone 20 mg tablet 40 mg PO DAILY 4 Days Qty: 8 0RF azithromycin 250 mg tablet See Rx Instructions PO .COMPLEX Qty: 6 0RF Rx Instructions: For 250 mg dose pack: take 500 mg today (day 1), then 250 mg for 4 days (days 2-5) ibuprofen 800 mg tablet 800 mg PO Q8H Qty: 90 0RF Referrals: Janeth Ramesh MD [Primary Care Provider] - Stand Alone Forms: Work/School Release Interventions: ED Discharge Assessment Last Done: 02/27/24 17:18 Discharge Date/Time: 02/27/24 17:18 Print Language: Austrian
[2024-02-27] MEDS: Albuterol/Iprat 2.5/0.5MG 3 ML AMPUL.NEB INHALE (16:57)
[2024-02-27 16:58] VITALS: PULSE 88; RESP 18; O2SAT 96
[2024-02-27 17:18] VITALS: BP 130/80; PULSE 88; RESP 18; TEMP 37.1
[2024-02-27 17:48] LABS: Influenza A PCR NEGATIVE (Negative); Influenza B PCR NEGATIVE (Negative); Resp Syncy Virus RNA Qual PCR NEGATIVE (Negative); SARS COV2 PCR INHOUSE NEGATIVE (Negative)
== END 2024-02-27 17:18 | disposition home or self-care (01) ==
PROVIDERS: Physician Assistant; Emergency Provider Emergency Medicine; PCP Internal Medicine
DX: J40 Bronchitis, not specified as acute or chronic (principal); Z03.818 Encounter for observation for suspected exposure to other biological agents ruled out; R05.9 Cough, unspecified
CPT/HCPCS: 0241U; 71046; 99283; 99284

== ENCOUNTER 2024-05-10 09:26 | Emergency (ER) | payer OTHER, SELFPAY ==
--- NOTE | 2024-05-10 | ECG_ITS ---
Test Reason : CHEST PAIN Blood Pressure : / mmHG Vent. Rate : 068 BPM Atrial Rate : 068 BPM P-R Int : 114 ms QRS Dur : 086 ms QT Int : 398 ms P-R-T Axes : 000 013 064 degrees QTc Int : 423 ms Normal sinus rhythm with sinus arrhythmia Normal ECG When compared with ECG of 12-FEB-2022 15:00, No significant change was found Referred By: Generic ED Physician Electronically Signed By:Connor Peterson
--- NOTE | ~2024-05-10 | XR_ITS ---
EXAMINATION: XR CHEST CLINICAL INFORMATION: Pneumonia? COMPARISON: Chest x-ray on 02/27/2024 TECHNIQUE: Frontal view of the chest was obtained. FINDINGS: No significant abnormality is noted involving the heart, lungs, mediastinum, bony thorax or soft tissues. XR/XR chest 1V IMPRESSION: Unremarkable examination. Electronically signed by: Katie Echeverria MD 05/10/2024 10:23 AM [facility] [place]
[2024-05-10 09:31] VITALS: BP 144/97; PULSE 93; RESP 24; TEMP 36.2; O2SAT 98; BMI 22.7
[2024-05-10 10:08] LABS: MANUAL DIFF FLAG NO
--- NOTE | 2024-05-10 10:10 | ED.GENADULT ---
HPI - General Adult General Chief complaint: Anxiety Stated complaint: panic attack Time Seen by Provider: 05/10/24 09:46 Source: patient Mode of arrival: ambulatory Limitations: no limitations History of Present Illness ED Provider: Yuri MADDOX HPI narrative: 44-year-old female history of anxiety disorder presents to ED for anxiety panic attacks for the past 2 days. Patient states due to her birthday and holidays the patient she became anxious. Patient states she lost custody of her son has has not seen him in 4 years and because of the holidays she realized his absence she was triggered into her anxiety attacks which presents as tingling in extremities, chest pain, crying and nervousness. Patient denies any pleurisy, leg swelling, calf pain, coughing up blood, recent long travel, recent surgery. Patient denies any estrogen hormonal use. Related Data Previous Rx's ?Medication ?Instructions ?Recorded ibuprofen 800 mg tablet 800 mg PO Q8H #90 tabs 12/20/22 azithromycin 250 mg tablet See Rx Instructions PO .COMPLEX #6 02/24/24 tabs prednisone 20 mg tablet 40 mg (2 x 20 mg) PO DAILY 4 days 02/24/24 #8 tabs albuterol sulfate 90 mcg/actuation 2 puff inhalation Q4-6H PRN 02/27/24 aerosol inhaler (Ventolin HFA) shortness of breath or wheezing #8.5 grams guaifenesin 1,200 mg tablet, 1,200 mg PO BID #10 tabs 02/27/24 extended release 12 hr (Mucinex) hydrocodone-homatropine 5 mg-1.5 5 ml PO Q6H PRN cough #60 mL 02/27/24 mg/5 mL oral syrup (Hycodan (with homatropine)) prednisone 10 mg tablet See Taper PO DIRECTED #19 tabs 02/27/24 hydroxyzine HCl 50 mg tablet 50 mg PO TID PRN anxiety 7 days 05/10/24 #21 tabs Allergies Allergy/AdvReac Type Severity Reaction Status Date / Time acetaminophen [From TYLENOL] Allergy Unknown NAUSEA & Verified 05/10/24 09:33 VOMITING duloxetine [Cymbalta] Allergy Unknown diarrhea Verified 05/10/24 09:33 Review of Systems Review of Systems: Anxiety, crying, nervousness Yes all other systems are reviewed and are negative PMFSH Past Medical History Medical History Anxiety No known health problems Surgical History No pertinent past surgical history Family History Family History Father No problems noted. Mother No problems noted. Paternal Grandmother Diabetes mellitus Paternal Grandfather Diabetes mellitus Son No problems noted. Son No problems noted. Son No problems noted. Social History Social History Housing: Apartment Alcohol intake: never Patient Tobacco Use Status: Current everyday Tobacco user Cigarettes Per Day: 3 e-Cigarette/Vaping Use: Never Used Substance Use Type: Marijuana Advance Directives: No Advance Directives Information Provided: Yes Guardian: No Current occupational status: employed Current occupation: works as a [employer] Cognitive needs: No Hearing needs: No Vision needs: No Physical Exam ED Vital Signs: Vital Signs - 24 hr 05/10/24 09:31 05/10/24 11:13 05/10/24 14:33 Temperature 97.1 F 97.8 F Pulse Rate 93 74 63 Respiratory Rate 24 H 15 15 Blood Pressure 144/97 H 124/84 119/71 Pulse Oximetry 98 99 98 Oxygen Delivery Method Room Air Room Air Room Air 05/10/24 14:51 Temperature 98.2 F Pulse Rate 63 Respiratory Rate 15 Blood Pressure 119/71 Pulse Oximetry 98 Oxygen Delivery Method Room Air BMI result Body Mass Index 22.7 Const General: cooperative, healthy appearing, comfortable, no acute distress, well developed, alert, awake and Physically active Orientation/consciousness: patient oriented x3 HENMT Head: Yes normal to inspection, Yes No palpable skull fracture present, Yes normocephalic and Yes atraumatic Ears: hearing grossly normal bilaterally, external ears normal, TM's normal bilaterally, TM normal on the right, TM normal on the left, EAC's normal, mastoids normal and no periauricular adenopathy Throat: Yes posterior oropharynx normal, Yes tonsils normal and Yes uvula midline Eyes General: appearance normal, both eyes and all related structures Neck Neck: Yes normal visual inspection, Yes full ROM, Yes no lymphadenopathy, Yes no meningeal signs, Yes trachea midline, Yes supple, No anterior neck swelling and No tender Chest Chest palpation & inspection: normal inspection of the chest and normal palpation of entire chest wall Resp Effort & Inspection: normal respiratory effort and able to speak in complete sentences Auscultation: clear to auscultation bilaterally Cardio Jugular venous distension: no JVD Heart sounds: S1 normal heart sound present and S2 normal heart sound present GI Inspection: Yes normal to inspection Palpation (GI): Soft to palpation, not firm, nontender, no guarding and not rigid General: No CVA tenderness and Yes no CVA tenderness Back/Spine/Pelvis Back: no CVA tenderness, No CVA tenderness and No back tenderness Skin General skin exam: no rashes or lesions noted, elasticity normal and turgor normal Neuro General: patient oriented x3, gait normal, tone normal, moves all extremities, Normal light touch and pain sensation, no meningeal signs, no focal motor deficits, CN's II-XI intact bilaterally and normal sensation to monofilament Extrem General: Yes normal to inspection, Yes full ROM and Yes capillary refill normal Psych Appearance: grossly normal, well kempt and not disheveled Medications Administered Discontinued Medications Generic Name Dose Route Start Last Admin Trade Name Freq PRN Reason Stop Dose Admin Lorazepam 1 mg 05/10/24 11:43 05/10/24 11:48 Lorazepam 1 Mg Tablet PO 05/10/24 11:44 1 mg ONCE ONE Administration Medical Decision Making Medical Decision Making MDM Narrative: 44-year-old female stating anxiety due to not be able to see if her son during the holidays. Patient states she no longer has a therapist or psychiatrist. Patient has been without anxiety meds for awhile. Patient requests to talk to son dwight in regards to her anxiety. We will do medical evaluation. 2:37pm: Patient one troponin negative after having anxiety panic attacks for the past 2 days. Chest x-ray negative pneumonia. Patient feels better after Ativan. Patient evaluated by care team consulted Lian who states patient can be discharged. She gave patient resources to call for follow-up and schedule an appointment. Patient will be discharged with Atarax. Not suspecting PE, CHF, pericarditis, myocarditis, aortic dissection, pneumonia, or cardiac tamponade. Patient explained worrisome signs informed to return to the ED immediately. Patient denies any suicidal or homicidal ideation. Patient denies any auditory/visual hallucinations. Differential Diagnosis Differential Diagnoses: The differential diagnosis associated with the presentation includes (Anxiety, panic attacks) Admission/Observation Consideration of admission/observation: Escalation of care including admission/observation considered Consult Healthcare Provider Management of the patient was discussed with: Waxer Operator (Care team instructional systems design consultant Lian) Lab Data MDM Lab Attestation statement: I reviewed the patient's lab results. 05/10/24 10:04 05/10/24 10:04 Labs: Lab Results 05/10/24 05/10/24 Range/Units 10:04 11:31 WBC 9.3 (4.8-10.8) X10*3/uL RBC 4.72 (4.20-5.50) X10*6/uL Hgb 14.9 (12.0-16.0) g/dl Hct 42.9 (37.0-47.0) % MCV 90.9 (80.0-98.0) fL MCH 31.6 (27.0-33.0) pg MCHC 34.7 (31.0-35.0) g/dl RDW 12.9 (11.0-16.0) % Plt Count 217 (160-400) X10*3/uL MPV 10.2 (9.4-12.3) fL Immature Gran % (Auto) 0.3 (0.0-0.4) % Neut % (Auto) 81.4 H (45-73) % Lymph % (Auto) 13.1 L (20-40) % [place] % (Auto) 4.4 (2-11) % Eos % (Auto) 0.2 (0-4) % Baso % (Auto) 0.6 (0-2) % Lymph # (Auto) 1.2 (1.2-4.9) X10*3/uL [place] # (Auto) 0.4 (0.1-1.2) X10*3/uL Eos # (Auto) 0.0 (0.0-0.4) X10*3/uL Baso # (Auto) 0.1 (0.0-0.2) X10*3/uL Abs Immat Gran (auto) 0.03 (0.00-0.03) X10*3/uL Absolute Neuts (auto) 7.5 (2.0-8.3) x10*3/uL Absolute Nucleated RBC 0.000 (0.0-0.012) X10*3/uL Nucleated RBC % (auto) 0.0 (0.0-0.2) /100WBC Sodium 141 (135-145) mmol/L Potassium 4.1 (3.3-5.1) mmol/L Chloride 106 (96-108) mmol/L Carbon Dioxide 22 (22-29) mmol/L Anion Gap 17 (12-20) BUN 13 (9-16) mg/dL Creatinine 0.83 (0.5-1.4) mg/dL Estim Creat Clear Calc 84.9 Estimated GFR > 60 Random Glucose 112 (60-115) mg/dL Calcium 9.2 (8.4-10.2) mg/dL Troponin I High Sens < 2.7 (<3.5-17.0) ng/L Beta HCG, Quant < 2 mIU/mL Urine Color Dark Yellow Urine Appearance Cloudy Urine pH 5.5 (5.0-9.0) Ur Specific [place] >= 1.030 H (1.005-1.025) Urine Protein 100 (2+) H (Neg-Trace) mg/dL Urine Glucose (UA) Negative (Negative) mg/dL Urine Ketones >=160 (Negative) mg/dL Urine Blood Negative (Negative) Urine Nitrite Negative (Negative) Ur Leukocyte Esterase Trace H (Negative) Urine RBC 0-2 (0-2) /HPF Urine WBC 0-5 (0-5) /HPF Ur Squamous Epith Cells 11-20 (0-2) /HPF Urine Bacteria 1+ (None Seen) Hyaline Casts 0-2 (0-2) /LPF Urine Test NEGATIVE (NEGATIVE) Urine Opiates Screen Not Detected (Not Detect) Ur Buprenorphine Scrn Not Detected (Not Detect) ng/mL Ur Oxycodone Screen Not Detected (Not Detect) ng/mL Urine Methadone Screen Not Detected (Not Detect) ng/mL Urine Fentanyl Screen Not Detected (Not Detect) Ur Barbiturates Screen Not Detected (Not Detect) Ur Phencyclidine Scrn Not Detected (Not Detect) Ur Amphetamines Screen Not Detected (Not Detect) U Benzodiazepines Scrn Not Detected (Not Detect) Urine Cocaine Screen Not Detected (Not Detect) U Marijuana (THC) Screen POSITIVE H (Not Detect) Ethyl Alcohol < 10 mg/dL Independent Interpretation I performed an independent interpretation of an: EKG (Negative STEMI) and Plain X-Ray Radiology Impression Discussion of test interpretation with radiology: I have reviewed the radiologist's reading. Independent Historian Clinical information obtained from an independent historian. History obtained from or confirmed by: Other (Patient) External Record Review External record reviewed: Other (Prior visits) Prescription Management I considered prescription management with: Other (Atarax) Discharge Plan Discharge Clinical Impression: Anxiety, Chest pain Patient Disposition: Home, Self-Care Instructions: Chest Pain (ED), Anxiety (ED) Additional Instructions: Recommend calling therapist you were referred to by our care team instructional systems design consultant Lian. You will be discharged with Atarax. Return to the ED immediately for any chest pain, shortness of breath, coughing up blood, calf pain, leg swelling, chest pain inspiration, fever, chills, or any other concerning symptoms. Also recommend follow up with primary care provider Prescriptions: New hydroxyzine HCl 50 mg tablet 50 mg PO TID PRN (Reason: anxiety) 7 Days Qty: 21 0RF No Action prednisone 20 mg tablet 40 mg PO DAILY 4 Days Qty: 8 0RF azithromycin 250 mg tablet See Rx Instructions PO .COMPLEX Qty: 6 0RF Rx Instructions: For 250 mg dose pack: take 500 mg today (day 1), then 250 mg for 4 days (days 2-5) albuterol sulfate [Ventolin HFA] 90 mcg/actuation HFA aerosol inhaler 2 puff inhalation Q4-6H PRN (Reason: shortness of breath or wheezing) Qty: 8.5 0RF guaifenesin [Mucinex] 1,200 mg tablet extended release 12hr 1,200 mg PO BID Qty: 10 0RF hydrocodone-homatropine [Hycodan (with homatropine)] 5-1.5 mg/5 mL syrup 5 ml PO Q6H PRN (Reason: cough) Qty: 60 0RF Rx Instructions: Partial Fill upon patient request. prednisone 10 mg tablet See Taper PO DIRECTED Qty: 19 0RF Taper: Prednisone 40 mg daily for 1 Day and 0 Hour 30 mg daily for 3 Days and 0 Hour 20 mg daily for 3 Days and 0 Hour 10 mg daily for 3 Days and 0 Hour Rx Instructions: see taper instructions ibuprofen 800 mg tablet 800 mg PO Q8H Qty: 90 0RF Stand Alone Forms: Work/School Release Interventions: ED Discharge Assessment Last Done: 05/10/24 14:51 Discharge Date/Time: 05/10/24 14:52 Print Language: Arabic
[2024-05-10 10:12] LABS: Basophils Absolute Auto 0.1 X10*3/uL (0.0-0.2); Basophils Percent Auto 0.6 % (0-2); Eosinophils Percent Auto 0.2 % (0-4); Hematocrit 42.9 % (37.0-47.0); Hemoglobin 14.9 g/dl (12.0-16.0); Imm Gran Abs Auto 0.03 X10*3/uL (0.00-0.03); Imm Gran Pct Auto 0.3 % (0.0-0.4); Lymphocytes Absolute Auto 1.2 X10*3/uL (1.2-4.9); Lymphocytes Percent Auto 13.1 % (20-40); Mean Corpuscular HGB Conc 34.7 g/dl (31.0-35.0); Mean Corpuscular Hemoglobin 31.6 pg (27.0-33.0); Mean Corpuscular Volume 90.9 fL (80.0-98.0); Mean Platelet Volume 10.2 fL (9.4-12.3); Monocytes Absolute Auto 0.4 X10*3/uL (0.1-1.2); Monocytes Percent Auto 4.4 % (2-11); Neutrophils Absolute Auto 7.5 x10*3/uL (2.0-8.3); Neutrophils Percent Auto 81.4 % (45-73); Platelet Count 217 X10*3/uL (160-400); Red Blood Count 4.72 X10*6/uL (4.20-5.50); Red Cell Distribution Width 12.9 % (11.0-16.0); White Blood Count 9.3 X10*3/uL (4.8-10.8)
[2024-05-10 10:31] LABS: Anion Gap 17 (12-20); Blood Urea Nitrogen 13 mg/dL (9-16); Calcium 9.2 mg/dL (8.4-10.2); Carbon Dioxide 22 mmol/L (22-29); Chloride 106 mmol/L (96-108); Creatinine Clr Calc Pharmacy 84.9; Estimated Glomerular Filt Rate > 60; Glucose Random 112 mg/dL (60-115); Potassium 4.1 mmol/L (3.3-5.1); Sodium 141 mmol/L (135-145)
[2024-05-10 10:38] LABS: Ethanol < 10 mg/dL; HCG Quantitative < 2 mIU/mL; Troponin-I High Sensitivity < 2.7 ng/L (<3.5-17.0)
[2024-05-10 11:13] VITALS: BP 124/84; PULSE 74; RESP 15; TEMP 36.6; O2SAT 99
[2024-05-10 11:43] LABS: Appearance Urine Cloudy; Color Urine Dark Yellow; Glucose Urine UA Negative (Negative); Leukocyte Esterase Urine Trace (Negative); Nitrite Urine Negative (Negative); PH 5.5 (5.0-9.0); Specific Gravity - Urine >= 1.030 (1.005-1.025); UMIC TRIGGER UACC YES; UPreg QC Valid YES; Urine Blood Negative (Negative); Urine Ketones >=160 mg/dL (Negative); Urine Pregnancy NEGATIVE (NEGATIVE); Urine Protein 100 (2+) mg/dL (Neg-Trace)
[2024-05-10] MEDS: LORazepam 1 MG TABLET PO (11:48)
[2024-05-10 11:50] LABS: Amphetamine Screen Urine Not Detected (Not Detect); Barbiturates, Urine Not Detected (Not Detect); Benzodiazepines Screen Urine Not Detected (Not Detect); Buprenorphine Scr Not Detected (Not Detect); Cannabinoid Screen Urine POSITIVE (Not Detect); Cocaine Screen Urine Not Detected (Not Detect); Fentanyl, urine Not Detected (Not Detect); Methadone Screen, Urine Not Detected (Not Detect); Opiate Screen Urine Not Detected (Not Detect); Oxycodone Screen Urine Not Detected (Not Detect); Phencyclidine Screen Urine Not Detected (Not Detect)
--- NOTE | 2024-05-10 11:50 | PC.NURSE ---
pt medicated per MAR
[2024-05-10 11:51] LABS: Bacteria Urine 1+ (None Seen); Hyaline Casts Urine 0-2 /LPF (0-2); RBC Urine 0-2 /HPF (0-2); WBC Urine 0-5 /HPF (0-5)
--- NOTE | 2024-05-10 14:29 | MHC.CARE ---
Patient evaluated by the CARE Team, disposition referrals to therapy and [facility]. ED provider, Yuri Young updated and in agreement with plan.
[2024-05-10 14:33] VITALS: BP 119/71; PULSE 63; RESP 15; O2SAT 98
[2024-05-10 14:51] VITALS: BP 119/71; PULSE 63; RESP 15; TEMP 36.8; O2SAT 98
--- NOTE | 2024-05-11 09:24 | MHC.CARE ---
[facility] [place] and [facility] referrals complete.
== END 2024-05-10 14:52 | disposition home or self-care (01) ==
PROVIDERS: Physician Assistant; Emergency Provider Emergency Medicine; PCP Internal Medicine
DX: F43.0 Acute stress reaction (principal); R07.89 Other chest pain; I49.8 Other specified cardiac arrhythmias; F41.9 Anxiety disorder, unspecified; F17.210 Nicotine dependence, cigarettes, uncomplicated; Z51.81 Encounter for therapeutic drug level monitoring; Z79.899 Other long term (current) drug therapy
CPT/HCPCS: 36415; 71045; 80048; 80307; 81001; 81025; 84484; 84702; 85025; 93005; 99284

== ENCOUNTER → 2024-05-10 09:49 | Outpatient (BNV) | payer OTHER, SELFPAY | PROVIDERS: Emergency Provider Emergency Medicine; PCP Internal Medicine; Visit Provider Internal Medicine Cardiovascular Disease | DX: R07.9 Chest pain, unspecified (principal) | CPT/HCPCS: 93010 ==

== ENCOUNTER 2025-02-19 16:10 | Emergency (ER) | payer MEDICAID, SELFPAY ==
--- NOTE | ~2025-02-19 | XR_ITS ---
EXAMINATION: XR HAND, RIGHT CLINICAL INFORMATION: pain, injury COMPARISON: None available. TECHNIQUE: PA, lateral, and oblique views of the right hand. FINDINGS: Normal alignment. No fracture, erosive changes or destructive bone lesions. Joint spaces are preserved. Soft tissue swelling of the distal aspect of the third digit. No abnormal calcifications or radiopaque foreign body. XR/XR hand RT 2V IMPRESSION: No acute fracture or malalignment. No radiopaque foreign body. Electronically signed by: Maryann Murillo MD 02/19/2025 04:54 PM EDT
--- NOTE | 2025-02-19 16:11 | ED.GENADULT ---
HPI - General Adult General Chief complaint: Skin/Abscess/Foreign Body Stated complaint: ?R middile finger cellulitis Time Seen by Provider: 02/19/25 16:24 Source: patient Mode of arrival: ambulatory Limitations: no limitations History of Present Illness ED Provider: Adela Montes PA-C HPI narrative: Patient is a 44 year old assigned male at with a history of IVDA several years ago, anxiety, and depression presenting to the emergency department today with a right middle finger injury. Patient states that 2 weeks ago she was scratched by her cat who is indoors only. Patient states that her right middle finger continues to hurt and she has not been treated for the scratch. Patient denies any other complaints at this time. Patient states that it is her cat and the cat is up to date on all vaccinations. Patient states that she does not know when her last tetanus update was. Related Data Previous Rx's ?Medication ?Instructions ?Recorded ibuprofen 800 mg tablet 800 mg PO Q8H #90 tabs 12/20/22 azithromycin 250 mg tablet See Rx Instructions PO .COMPLEX #6 02/24/24 tabs prednisone 20 mg tablet 40 mg (2 x 20 mg) PO DAILY 4 days 02/24/24 #8 tabs albuterol sulfate 90 mcg/actuation 2 puff inhalation Q4-6H PRN 02/27/24 aerosol inhaler (Ventolin HFA) shortness of breath or wheezing #8.5 grams guaifenesin 1,200 mg tablet, 1,200 mg PO BID #10 tabs 02/27/24 extended release 12 hr (Mucinex) hydrocodone-homatropine 5 mg-1.5 5 ml PO Q6H PRN cough #60 mL 02/27/24 mg/5 mL oral solution (Hycodan (with homatropine)) prednisone 10 mg tablet See Taper PO DIRECTED #19 tabs 02/27/24 hydroxyzine HCl 50 mg tablet 50 mg PO TID PRN anxiety 7 days 05/10/24 #21 tabs amoxicillin 875 mg-potassium 1 tab PO BID 7 days #14 tabs 02/19/25 clavulanate 125 mg tablet doxycycline hyclate 100 mg tablet 100 mg PO BID 7 days #14 tabs 02/19/25 Allergies Allergy/AdvReac Type Severity Reaction Status Date / Time acetaminophen (From TYLENOL) Allergy Unknown NAUSEA & Verified 02/19/25 16:14 VOMITING duloxetine (Cymbalta) Allergy Unknown diarrhea Verified 02/19/25 16:14 Review of Systems Constitutional: Constitutional: Reports as per HPI Eyes: Eyes: Reports as per HPI ENT: Reports as per HPI Cardiovascular: Cardiovascular: Reports as per HPI Respiratory: Respiratory: Reports as per HPI Gastrointestinal: Gastrointestinal: Reports as per HPI Genitourinary: Genitourinary: Reports as per HPI Musculoskeletal: Musculoskeletal: Reports as per HPI Integumentary/Breasts: Skin/Breast: Reports as per HPI Neurologic: Reports as per HPI Psychiatric: Psychiatric: Reports as per HPI Endocrine: Endocrine: Reports as per HPI Hematologic/Lymphatic: Hematologic/Lymphatic: Reports as per HPI Allergic/Immunologic: Allergic/Immunologic: Reports as per HPI [facility] Past Medical History Attestation statement: The following information was validated with the patient. Source: old records reviewed and nursing notes reviewed Medical History Anxiety No known health problems Surgical History No pertinent past surgical history Family History Family History Father No problems noted. Mother No problems noted. Paternal Grandmother Diabetes mellitus Paternal Grandfather Diabetes mellitus Son No problems noted. Son No problems noted. Son No problems noted. 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 Cognitive needs: No Hearing needs: No Vision needs: No Physical Exam ED Vital Signs: Vital Signs - 24 hr 02/19/25 16:12 02/19/25 18:26 Temperature 98.2 F 97.9 F Pulse Rate 81 47 L Respiratory Rate 18 14 Blood Pressure 132/77 102/52 L Pulse Oximetry 98 95 Oxygen Delivery Method Room Air Room Air BMI result Body Mass Index 23.7 Const General: cooperative, no acute distress, alert and awake Nutritional Appearance: well nourished Orientation/consciousness: patient oriented x3 [facility] Head: Yes normal to inspection and Yes atraumatic Ears: hearing grossly normal bilaterally and external ears normal General nose exam: Normal external nose present, no nasal discharge noted and no epistaxis Face and sinus: Yes normal facial exam, No abrasion and No laceration Mouth: Normal oral and palatal mucosa present, no drooling and no muffled voice Eyes General: appearance normal, both eyes and all related structures Periorbital: periorbital findings normal Eyelids: Yes eyelids normal Conjunctivae: conjunctivae normal Pupils: Equal, round and reactive pupils present EOM: EOMs intact bilaterally Neck Neck: Yes normal visual inspection and Yes full ROM Resp Effort & Inspection: normal respiratory effort and able to speak in complete sentences Neuro General: patient oriented x3, moves all extremities and CN's II-XI intact bilaterally Cranial nerves: Yes Equal, round and reactive pupils present Cognition (Neuro): normal cognition Extrem Other: General: Yes full ROM and Yes capillary refill normal Psych Appearance: grossly normal Mental Status: mental status grossly normal Affect: normal affect Attitude: cooperative Thought process: Normal thought process present Thought content: Normal thought content present Insight: Good insight present (Psych) Course Course Course Narrative: Rapid medical examination performed in triage by Adela Montes PA-C. Patient is a 44 year old assigned female at presenting to the emergency department with right middle finger injury / infection. Patient states 2 weeks ago she was scratched by her Cat on her right middle finger and it has been progressively worse. Patient states that she is right hand dominant. Patient states that she has a history of IVDU years ago. Detailed physical exam and review of systems are deferred to the triage clinician. Labs and imaging ordered. Patient placed back in the waiting room pending room availability and results. Medications Administered Discontinued Medications Generic Name Dose Route Start Last Admin Trade Name Freq PRN Reason Stop Dose Admin Lidocaine/Epinephrine/Tetracaine 1 ml 02/19/25 17:20 02/19/25 17:28 Lidocaine/Racepinep/Tetracaine 3 Ml Gel.Pf.Adalgisa TOPICAL 02/19/25 17:21 1 ml ONCE ONE Administration Procedures Abscess I/D Site: other (3rd digit) Side (if applicable): right Local Anesthetic: other anesthetic (LET) Technique: needle aspiration Amount of fluid expressed (mL): 0 Sent for culture/gram staining?: No Irrigation: No Packing used?: none Medical Decision Making Medical Decision Making MDM Narrative: Patient is a 44 year old assigned male at with a history of IVDA several years ago, anxiety, and depression presenting to the emergency department today with a right middle finger injury Patient's physical exam was as noted in the physical exam portion of this note. Patient's blood work was unremarkable. Patient's right hand x-ray showed no acute process. I spoke with the orthopedic team who recommended attempting to drain the area, covering with antibiotics, and having her follow up with their office on an outpatient basis. I explained my physical exam findings as well as all test results to the patient. I answered all questions asked by the patient. I used an 18g needle to aspirate the area as the orthopedic team recommended - nothing was expressed but blood. Patient was brought up to date on her tetanus status and given her first dose of antibiotics. I stressed the importance of the patient taking her medication as directed (either prescribed or as the over the counter packaging recommends). I stressed the importance of the patient following up with her primary care provider and the orthopedic team. I stressed the importance of the patient returning to the emergency department immediately if her symptoms were to worsen or if she were to develop any dizziness, shortness of breath, difficulty breathing, chest pain, blurry vision, loss of vision, nausea, vomiting, abdominal pain, fever, chills, back pain, or any other complaints. Patient verbalized agreement and understanding with this treatment plan and discharge. Differential Diagnosis Differential Diagnoses: The differential diagnosis associated with the presentation includes Cellulitis Abscess Admission/Observation Consideration of admission/observation: Escalation of care including admission/observation considered Patient would have been admitted to the hospital had her work up had any findings where hospital admission was appropriate and her clinical presentation warranted hospital admission. Consult Healthcare Provider Management of the patient was discussed with: Vehicle Insurance Agent (spoke with the orthopedic team as noted in the MDM Rationale portion of this note.) Lab Data [facility] Lab Attestation statement: I reviewed the patient's lab results. My interpretation of these results are in the MDM Rationale portion of this note. 02/19/25 16:43 02/19/25 16:43 Labs: Lab Results 02/19/25 Range/Units 16:43 WBC 7.3 (4.8-10.8) X10*3/uL RBC 4.10 L (4.20-5.50) X10*6/uL Hgb 13.1 (12.0-16.0) g/dl Hct 37.0 (37.0-47.0) % MCV 90.2 (80.0-98.0) fL MCH 32.0 (27.0-33.0) pg MCHC 35.4 H (31.0-35.0) g/dl RDW 13.0 (11.0-16.0) % Plt Count 239 (160-400) X10*3/uL MPV 10.4 (9.4-12.3) fL Immature Gran % (Auto) 0.3 (0.0-0.4) % Neut % (Auto) 61.0 (45-73) % Lymph % (Auto) 29.2 (20-40) % [place] % (Auto) 7.0 (2-11) % Eos % (Auto) 1.5 (0-4) % Baso % (Auto) 1.0 (0-2) % Lymph # (Auto) 2.1 (1.2-4.9) X10*3/uL [place] # (Auto) 0.5 (0.1-1.2) X10*3/uL Eos # (Auto) 0.1 (0.0-0.4) X10*3/uL Baso # (Auto) 0.1 (0.0-0.2) X10*3/uL Abs Immat Gran (auto) 0.02 (0.00-0.03) X10*3/uL Absolute Neuts (auto) 4.5 (2.0-8.3) x10*3/uL Absolute Nucleated RBC 0.000 (0.0-0.012) X10*3/uL Nucleated RBC % (auto) 0.0 (0.0-0.2) /100WBC ESR 2 (0-20) MM/HR Sodium 138 (135-145) mmol/L Potassium 4.2 (3.3-5.1) mmol/L Chloride 107 (96-108) mmol/L Carbon Dioxide 26 (22-29) mmol/L Anion Gap 9 L (12-20) BUN 12 (9-16) mg/dL Creatinine 0.71 (0.5-1.4) mg/dL Estim Creat Clear Calc 99.3 Estimated GFR > 60 Random Glucose 104 (60-115) mg/dL Calcium 8.7 (8.4-10.2) mg/dL Total Bilirubin 0.7 (0.0-1.0) mg/dL AST 19 (5-31) U/L ALT 18 (0-31) U/L Alkaline Phosphatase 48 (39-117) U/L C-Reactive Protein < 0.04 (< or = 0.50) mg/dL Total Protein 6.4 L (6.5-8.0) g/dL Albumin 4.2 (3.5-5.0) g/dL Independent Interpretation I performed an independent interpretation of an: Plain X-Ray Interpretation: My interpretation is in agreement with the radiologist's impression of this imaging study. EXAMINATION: XR HAND, RIGHT CLINICAL INFORMATION: pain, injury COMPARISON: None available. TECHNIQUE: PA, lateral, and oblique views of the right hand. FINDINGS: Normal alignment. No fracture, erosive changes or destructive bone lesions. Joint spaces are preserved. Soft tissue swelling of the distal aspect of the third digit. No abnormal calcifications or radiopaque foreign body. XR/XR hand RT 2V IMPRESSION: No acute fracture or malalignment. No radiopaque foreign body. Electronically signed by: Maryann Murillo MD 02/19/2025 04:54 PM EDT Dictated By: Maryann Murillo MD Signed By: Electronically signed by Maryann Murillo MD 02/19/25 [id number] Radiology Impression Discussion of test interpretation with radiology: I have reviewed the radiologist's reading. Prescription Management I considered prescription management with: Antibiotic (Patient prescribed antibiotics for her right middle finger cellulitis vs. abscess) Discharge Plan Discharge Clinical Impression: Paronychia of finger, Cat scratch Patient Disposition: Home, Self-Care Instructions: Paronychia (ED) Additional Instructions: Do NOT soak the affected area. Do NOT have any contact with public bodies of water including but not limited to: pools, lakes, [place], oceans, etc. Take your antibiotic as prescribed. Follow up with the orthopedic team. Apply warm compresses to the area. IF you are prescribed home medications and/or you are taking over the counter medications at home - it is very important you continue to do so as prescribed / directed unless told otherwise. Follow up with your primary care provider. Return to the emergency department immediately if your symptoms worsen or if you develop any numbness, tingling, dizziness, shortness of breath, difficulty breathing, chest pain, blurry vision, loss of vision, nausea, vomiting, abdominal pain, fever, chills, back pain, or any other complaints. Please see the information below about our Patient Portal. If you are not yet enrolled in the [facility] Patient Portal, you will receive an enrollment email invitation following your visit to any [facility] care setting. You may also self-enroll in the Patient Portal by visiting our website: [email or web address] The following information is required to access the Patient Portal: - Your [facility] Medical Record Number - Your personal home email address (must match what is in your electronic medical record, Registration staff can assist with this) - Name - Date of Capabilities of the Patient Portal: - Message some providers - View upcoming appointments - Access your health summary, medical history, and visit history - View current conditions and allergies - View procedure and lab results - View your medications, including guidelines, side effects, and precautions - Complete pre-appointment questionnaires requested by your provider - Ready summary reports of your office visits and procedures To access the Patient Portal Mobile Adalgisa, follow these directions: - Search [employer] in the Adalgisa Store or [employer] Store - Download the Adalgisa - Search for [facility] - Enter your login/password Prescriptions: New doxycycline hyclate 100 mg tablet 100 mg PO BID 7 Days Qty: 14 0RF amoxicillin-pot clavulanate 875-125 mg tablet 1 tab PO BID 7 Days Qty: 14 0RF No Action prednisone 20 mg tablet 40 mg PO DAILY 4 Days Qty: 8 0RF azithromycin 250 mg tablet See Rx Instructions PO .COMPLEX Qty: 6 0RF Rx Instructions: For 250 mg dose pack: take 500 mg today (day 1), then 250 mg for 4 days (days 2-5) hydroxyzine HCl 50 mg tablet 50 mg PO TID PRN (Reason: anxiety) 7 Days Qty: 21 0RF albuterol sulfate [Ventolin HFA] 90 mcg/actuation HFA aerosol inhaler 2 puff inhalation Q4-6H PRN (Reason: shortness of breath or wheezing) Qty: 8.5 0RF guaifenesin [Mucinex] 1,200 mg tablet extended release 12hr 1,200 mg PO BID Qty: 10 0RF hydrocodone-homatropine [Hycodan (with homatropine)] 5-1.5 mg/5 mL syrup 5 ml PO Q6H PRN (Reason: cough) Qty: 60 0RF Rx Instructions: Partial Fill upon patient request. prednisone 10 mg tablet See Taper PO DIRECTED Qty: 19 0RF Taper: Prednisone 40 mg daily for 1 Day and 0 Hour 30 mg daily for 3 Days and 0 Hour 20 mg daily for 3 Days and 0 Hour 10 mg daily for 3 Days and 0 Hour Rx Instructions: see taper instructions ibuprofen 800 mg tablet 800 mg PO Q8H Qty: 90 0RF Referrals: [facility] Orthopedic Surgeons [Provider Group] Referral Note: Call to establish and follow up with the orthopedic team. Janeth Ramesh MD [Primary Care Provider, Internal Medicine] Stand Alone Forms: Work/School Release Print Language: Choose Not To Answer
[2025-02-19 16:12] VITALS: BP 132/77; PULSE 81; RESP 18; TEMP 36.8; O2SAT 98; BMI 23.7
[2025-02-19 16:48] LABS: Hematocrit 37.0 % (37.0-47.0); Hemoglobin 13.1 g/dl (12.0-16.0); Imm Gran Abs Auto 0.02 X10*3/uL (0.00-0.03); Imm Gran Pct Auto 0.3 % (0.0-0.4); Lymphocytes Absolute Auto 2.1 X10*3/uL (1.2-4.9); MANUAL DIFF FLAG NO; Mean Corpuscular HGB Conc 35.4 g/dl (31.0-35.0); Mean Corpuscular Hemoglobin 32.0 pg (27.0-33.0); Mean Corpuscular Volume 90.2 fL (80.0-98.0); NRBC Abs Auto 0.000 X10*3/uL (0.0-0.012); NRBC Pct Auto 0.0 /100WBC (0.0-0.2); Platelet Count 239 X10*3/uL (160-400); Red Blood Count 4.10 X10*6/uL (4.20-5.50); White Blood Count 7.3 X10*3/uL (4.8-10.8)
[2025-02-19 17:05] LABS: Alanine Aminotransferase 18 U/L (0-31); Albumin Level 4.2 g/dL (3.5-5.0); Alkaline Phosphatase 48 U/L (39-117); Anion Gap 9 (12-20); Aspartate Amino Transferase 19 U/L (5-31); Blood Urea Nitrogen 12 mg/dL (9-16); Calcium 8.7 mg/dL (8.4-10.2); Carbon Dioxide 26 mmol/L (22-29); Chloride 107 mmol/L (96-108); Creatinine Clr Calc Pharmacy 99.3; Estimated Glomerular Filt Rate > 60; Potassium 4.2 mmol/L (3.3-5.1); Sodium 138 mmol/L (135-145); Total Protein 6.4 g/dL (6.5-8.0)
[2025-02-19] MEDS: Lidocaine/Racepinep/Tetracaine 3 ML GEL.PF.APP 1 ML TOPICAL (17:28)
--- OUTSIDE RECORDS SUMMARY | 2025-02-19 18:00 | XMS_ITS | Clinical Summary ---
Author Organization [facility] Address [address] [place] [address] Care Team Providers Care Quality Assurance Engineer Name Role Phone Unavailable Primary Care Provider Unavailabl e Social History Tobacco Use Types Packs/Day Years Used Date Smoking Tobacco: Never Assessed Comments Unknown Sex and Gender Information Value Date Recorded Sex Assigned at Not on file Legal Sex Female 1:03 PM EDT Gender Identity Not on file Sexual Orientation Not on file Plan of Treatment Health Maintenance Due Date Last Done Comments Hepatitis C Virus Screening 1981 HIV Screening 1994 DTaP/Tdap/Td Vaccines (1 - Tdap) 2000 Hepatitis B Vaccines (1 of 3 - 19+ 3-dose series) 2000 HPV Vaccines (1 - 3-dose SCD M series) 2008 COVID-19 Vaccine ( - 2023-2 5 season) 2025 Pneumococcal Vaccine: Pediat alexa (0-5 Years) and At-Risk Patients (6 to 49 Years) Aged Out No longer eligible b ased on patient's age to complete this topic
[2025-02-19 18:26] VITALS: BP 102/52; PULSE 47; RESP 14; TEMP 36.6; O2SAT 95
[2025-02-19 20:25] VITALS: BP 102/52; PULSE 47; RESP 14; TEMP 36.6; O2SAT 95
== END 2025-02-19 18:45 | disposition home or self-care (01) ==
PROVIDERS: Physician Assistant Medical; Emergency Provider Emergency Medicine; PCP Internal Medicine
DX: L03.011 Cellulitis of right finger (principal); F17.210 Nicotine dependence, cigarettes, uncomplicated
CPT/HCPCS: 10060; 36415; 73120; 80053; 85025; 85652; 86140; 99283; 99284

== ENCOUNTER → 2025-02-19 16:14 | Outpatient (BNV) | payer OTHER, SELFPAY | PROVIDERS: PCP Internal Medicine; Visit Provider Radiology Body Imaging | DX: S69.91XA Unspecified injury of right wrist, hand and finger(s), initial encounter (principal) | CPT/HCPCS: 73120 ==

== ENCOUNTER 2025-02-26 10:41 | Outpatient (AMB) | payer MEDICAID, SELFPAY ==
--- NOTE | 2025-02-26 10:43 | A.OFFVIS_ITS ---
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 Per emergency department report patient was scratched by her cat however the cat is up to date in vaccinations and an indoor only cat. Currently she expresses having continued pain with flexion and extension that comes and goes. She says her swelling has resolved slightly. Denies numbness and tingling in the middle finger. The ED prescribed her antibiotics which she is almost done with. Says she had no drainage after her ED visit. She also mentioned in the ED mentioning her left hand as well due to an injury that occurred 2 months ago. She states her partners Deshawn Blaird yanked and pulled his leash while taking it for a walk and ever since this she is having pain in at the base of her left thumb and says it feels hard as a rock with palpation. She expresses thinking she tore something in the left thumb. Pain with gripping, gasping and lifting, express 0 strength. Since this she also says she has tingling that is in the left thumb radiating into the shoulder. 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 Per emergency department report patient was scratched by her cat however the cat is up to date in vaccinations and an indoor only cat. Currently she expresses having continued pain with flexion and extension that comes and goes. She says her swelling has resolved slightly. Denies numbness and tingling in the middle finger. The ED prescribed her antibiotics which she is almost done with. Says she had no drainage after her ED visit. The patient states that pain and tenderness of both improved significantly since evaluation in the ED. [facility] Medical History Anxiety No known health problems Surgical History No pertinent past surgical history Family History Father No problems noted. Mother No problems noted. Paternal Grandmother Diabetes mellitus Paternal Grandfather Diabetes mellitus Son No problems noted. Son No problems noted. Son No problems noted. Social History Housing: Apartment Alcohol intake: never Patient Tobacco Use Status: Current everyday Tobacco user Cigarettes Per Day: 3 e-Cigarette/Vaping Use: Never Used Substance Use Type: Marijuana Current occupational status: employed Cognitive needs: No Hearing needs: No Vision needs: No Review of Systems Const All systems reviewed & are unremarkable except as noted in HPI and below Physical Exam Vital Signs: BMI result Body Mass Index 23.5 Extrem Other: Patient is alert, oriented, and in no acute distress. Neuro: Normal sensation of the tips of all digits of the right hand at this time Vascular: Cap refill brisk Pain: Minimal tenderness to palpation noted of the distal aspect of the right middle finger in the area of cat scratch Minimal discomfort range of motion of the DIP joint of the right middle finger ROM: Patient is able to make a closed fist and extend all digits of the right hand fully Skin: No lacerations or abrasions. General: No ecchymosis, erythema, or evidence of infection. Psych: Appears grossly normal Affect normal Attitude cooperative Assessment & Plan Assessment & Plan (1) Cellulitis of right middle finger: Code(s): L03.011 - Cellulitis of right finger Category: Medical Plan 1. Cellulitis status post cat scratch of right middle finger Patient is a extended about this condition and appears to be recovering well Patient is educated about the typical recovery course Antibiotics refilled at this time Patient is educated on signs and symptoms of worsening infection, including redness, swelling, discharge, or increasing pain Patient is educated that if she begins to experiencing symptoms, she should either return to the emergency department or call our office early next week Follow-up in 1 week for wound check, sooner with any acute concerns Medications: Refilled amoxicillin-pot clavulanate 875-125 mg 1 tab PO BID 14 tabs 0RF 7 days Coding Level of Care Code New Pt Level 3 (85453) Diagnoses Cellulitis of right middle finger L03.011
[2025-02-26 10:44] VITALS: BMI 23.5
--- OUTSIDE RECORDS SUMMARY | 2025-02-26 11:19 | XMS_ITS | Clinical Summary ---
Author Organization [facility] Address [address] [place] [address] Care Team Providers Care Vice President Of News Name Role Phone Unavailable Primary Care Provider [...]
== END 2025-02-26 11:05 | disposition home or self-care (01) ==
LOC: HO.HOS 10:41
PROVIDERS: PCP Internal Medicine
DX: L03.011 Cellulitis of right finger (principal)
CPT/HCPCS: 99203

== ENCOUNTER → 2025-02-26 10:41 | Outpatient (BNVA) | payer MEDICAID, SELFPAY | PROVIDERS: PCP Internal Medicine | DX: Z09 Encounter for follow-up examination after completed treatment for conditions other than malignant neoplasm (principal); L03.011 Cellulitis of right finger | CPT/HCPCS: 99212 ==

== ENCOUNTER 2025-03-05 13:56 | Outpatient (AMB) | payer MEDICAID, SELFPAY ==
--- NOTE | 2025-03-05 14:38 | MHC.OFFVIS ---
Vital Signs 03/05/25 14:40 Height 5 ft 7 in Weight 150 lb BMI 23.5 Intake Visit Reasons: OV-R middle finger cellulitis-*cat scratch* Intake Note: Loren is a 44 year old right hand dominant female who presents today for a wound check status post right middle finger cellulitis from a cat scratch. Antibiotics were refilled at her last visit, 02/26/25. Patient reports she is still experiencing a lot of pain on her finger. She is still noticing it getting swollen and color changes from black and blue. She has tried taking the antibiotics. Allergies acetaminophen (From TYLENOL) Allergy (Unknown, Verified 03/05/25 14:39) NAUSEA & VOMITING duloxetine (Cymbalta) Allergy (Unknown, Verified 03/05/25 14:39) diarrhea HPI HPI OV-R middle finger cellulitis-*cat scratch*: Details: Loren is a 44 year old right hand dominant female who presents today for a wound check status post right middle finger cellulitis from a cat scratch. Antibiotics were refilled at her last visit, 02/26/25. Patient reports she is still experiencing a lot of pain on her finger. She is still noticing it getting swollen and color changes from black and blue. Denies any ongoing redness Patient has been taking her antibiotics. [facility] Medical History Anxiety No known health problems Surgical History No pertinent past surgical history Family History Father No problems noted. Mother No problems noted. Paternal Grandmother Diabetes mellitus Paternal Grandfather Diabetes mellitus Son No problems noted. Son No problems noted. Son No problems noted. Social History Housing: Apartment Alcohol intake: never Patient Tobacco Use Status: Current everyday Tobacco user Cigarettes Per Day: 3 e-Cigarette/Vaping Use: Never Used Substance Use Type: Marijuana Current occupational status: employed Cognitive needs: No Hearing needs: No Vision needs: No Review of Systems Const All systems reviewed & are unremarkable except as noted in HPI and below Physical Exam Vital Signs: BMI result Body Mass Index 23.5 Extrem Other: Patient is alert, oriented, and in no acute distress. Neuro: Normal sensation of the tips of all digits of the right hand at this time Vascular: Cap refill brisk Pain: No further tenderness to palpation noted of the distal aspect of the right middle finger in the area of cat scratch Minimal discomfort range of motion of the DIP joint of the right middle finger ROM: Patient is able to make a closed fist and extend all digits of the right hand fully Skin: No lacerations or abrasions. General: No ecchymosis, erythema, or evidence of infection. Psych: Appears grossly normal Affect normal Attitude cooperative Assessment & Plan Assessment & Plan (1) Cellulitis of right middle finger: Code(s): L03.011 - Cellulitis of right finger Category: Medical Plan 1. Cellulitis status post cat scratch of right middle finger Patient is a extended about this condition and appears to be recovering well Patient is educated about the typical recovery course Given lack of ongoing infectious symptoms after previous evaluation, I do not feel there is any he for further antibiotic therapy at this time Patient is educated on signs and symptoms of worsening infection, including redness, swelling, discharge, or increasing pain Patient is educated that if she begins to experiencing symptoms, she should either return to the emergency department or call our office Follow-up as needed with any acute concerns Coding Level of Care Code Est Pt Level 3 (40925) Diagnoses Cellulitis of right middle finger L03.011
[2025-03-05 14:40] VITALS: BMI 23.5
--- OUTSIDE RECORDS SUMMARY | 2025-03-05 15:04 | XMS_ITS | Clinical Summary ---
Author Organization [facility] Address [address] [place] [address] Care Team Providers Care Finish Rolls Operator Name Role Phone Unavailable Primary Care Provider [...]
== END 2025-03-05 14:54 | disposition home or self-care (01) ==
LOC: HO.HOS 13:57
PROVIDERS: PCP Internal Medicine
DX: L03.011 Cellulitis of right finger (principal)
CPT/HCPCS: 99213

== ENCOUNTER → 2025-03-05 13:56 | Outpatient (BNVA) | payer MEDICAID, SELFPAY | PROVIDERS: PCP Internal Medicine | DX: L03.011 Cellulitis of right finger (principal) | CPT/HCPCS: 99212 ==

== ENCOUNTER 2025-03-10 14:33 | Emergency (ER) | payer MEDICAID, SELFPAY ==
--- NOTE | ~2025-03-10 | XR_ITS ---
EXAMINATION: XR HAND, RIGHT CLINICAL INFORMATION: right middle finger pain COMPARISON: None available. TECHNIQUE: PA, lateral, and oblique views of the right hand. FINDINGS: No fracture, dislocation, or suspicious bone lesion. Normal bone mineralization. Normal alignment. Joint spaces are preserved. No significant arthropathy. Soft tissue swelling of the distal third digit. Soft tissues otherwise normal. XR/XR hand RT min 3V IMPRESSION: 1. No acute bony abnormality of the right hand or third digit. 2. Soft tissue swelling distal third digit. Electronically signed by: Edgar Trinh MD 03/10/2025 04:11 PM EDT
[2025-03-10 15:37] VITALS: BP 141/63; PULSE 58; RESP 18; TEMP 36.9; O2SAT 97; BMI 23.5
--- NOTE | 2025-03-10 15:37 | ED.UPPEXIN ---
HPI - Extremity Injury (Upper) General Chief Complaint: Skin/Abscess/Foreign Body Stated Complaint: finger infection Related Data Previous Rx's ?Medication ?Instructions ?Recorded azithromycin 250 mg tablet See Rx Instructions PO .COMPLEX #6 02/24/24 tabs doxycycline hyclate 100 mg tablet 100 mg PO BID 7 days #14 tabs 02/19/25 amoxicillin 875 mg-potassium 1 tab PO BID 7 days #14 tabs 02/26/25 clavulanate 125 mg tablet amoxicillin 875 mg-potassium 1 tab PO Q12H #14 tabs 03/11/25 clavulanate 125 mg tablet Allergies Allergy/AdvReac Type Severity Reaction Status Date / Time acetaminophen (From TYLENOL) Allergy Unknown NAUSEA & Verified 03/10/25 23:24 VOMITING duloxetine (Cymbalta) Allergy Unknown diarrhea Verified 03/10/25 23:24 [facility] Past Medical History Medical History Anxiety No known health problems Surgical History No pertinent past surgical history Family History Family History Father No problems noted. Mother No problems noted. Paternal Grandmother Diabetes mellitus Paternal Grandfather Diabetes mellitus Son No problems noted. Son No problems noted. Son No problems noted. Social History Social History Housing: Apartment Alcohol intake: never Patient Tobacco Use Status: Current everyday Tobacco user Cigarettes Per Day: 3 e-Cigarette/Vaping Use: Never Used Substance Use Type: Marijuana Current occupational status: employed Cognitive needs: No Hearing needs: No Vision needs: No Physical Exam Vital Signs: Vital Signs: Last Vital Signs Temp 98.4 F 03/10/25 15:37 Pulse 58 03/10/25 15:37 Resp 18 03/10/25 15:37 BP 141/63 H 03/10/25 15:37 Pulse Ox 97 03/10/25 15:37 O2 Del Method Room Air 03/10/25 15:37 BMI result Body Mass Index 23.5 Course Course Course Narrative: This is an RME: Additional HPI, ROS, PE not included below will be deferred to primary provider. RME assessment and note performed by: Valeria Alexis PA-C 44 year old assigned male at with a history of IVDA several years ago, anxiety, and depression presenting to the emergency department today with a right middle finger injury. Pt was seen here on February 19 after a cat scratch. She completed full course of doxycycline and Keflex. She states that her symptoms have not improved. Patient was seen on 03/05 by the orthopedics. Plan: Labs, xray, further ER eval needed Reevaluation(s) Reevaluation #1: Patient left without completing treatment. Medical Decision Making Lab Data 03/10/25 16:01 03/10/25 16:01 Labs: Lab Results 03/10/25 Range/Units 16:01 WBC 5.7 (4.8-10.8) X10*3/uL RBC 3.73 L (4.20-5.50) X10*6/uL Hgb 11.8 L (12.0-16.0) g/dl Hct 33.6 L (37.0-47.0) % MCV 90.1 (80.0-98.0) fL MCH 31.6 (27.0-33.0) pg MCHC 35.1 H (31.0-35.0) g/dl RDW 13.0 (11.0-16.0) % Plt Count 211 (160-400) X10*3/uL MPV 10.5 (9.4-12.3) fL Immature Gran % (Auto) 0.2 (0.0-0.4) % Neut % (Auto) 52.1 (45-73) % Lymph % (Auto) 37.4 (20-40) % [place] % (Auto) 7.9 (2-11) % Eos % (Auto) 1.4 (0-4) % Baso % (Auto) 1.0 (0-2) % Lymph # (Auto) 2.1 (1.2-4.9) X10*3/uL [place] # (Auto) 0.5 (0.1-1.2) X10*3/uL Eos # (Auto) 0.1 (0.0-0.4) X10*3/uL Baso # (Auto) 0.1 (0.0-0.2) X10*3/uL Abs Immat Gran (auto) 0.01 (0.00-0.03) X10*3/uL Absolute Neuts (auto) 3.0 (2.0-8.3) x10*3/uL Absolute Nucleated RBC 0.000 (0.0-0.012) X10*3/uL Nucleated RBC % (auto) 0.0 (0.0-0.2) /100WBC ESR 7 (0-20) MM/HR Sodium 143 (135-145) mmol/L Potassium 4.0 (3.3-5.1) mmol/L Chloride 110 H (96-108) mmol/L Carbon Dioxide 28 (22-29) mmol/L Anion Gap 9 L (12-20) BUN 11 (9-16) mg/dL Creatinine 0.75 (0.5-1.4) mg/dL Estim Creat Clear Calc 94.0 Estimated GFR > 60 Random Glucose 120 H (60-115) mg/dL Calcium 8.8 (8.4-10.2) mg/dL Total Bilirubin 0.5 (0.0-1.0) mg/dL Direct Bilirubin 0.2 (0.0-0.5) mg/dL AST 20 (5-31) U/L ALT 16 (0-31) U/L Alkaline Phosphatase 45 (39-117) U/L C-Reactive Protein < 0.04 (< or = 0.50) mg/dL Total Protein 6.0 L (6.5-8.0) g/dL Albumin 3.9 (3.5-5.0) g/dL Discharge Plan Discharge Clinical Impression: Finger pain Patient Disposition: Left W/O Completing Treatment Prescriptions: No Action azithromycin 250 mg tablet See Rx Instructions PO .COMPLEX Qty: 6 0RF Rx Instructions: For 250 mg dose pack: take 500 mg today (day 1), then 250 mg for 4 days (days 2-5) amoxicillin-pot clavulanate 875-125 mg tablet 1 tab PO Q12H Qty: 14 0RF doxycycline hyclate 100 mg tablet 100 mg PO BID 7 Days Qty: 14 0RF amoxicillin-pot clavulanate 875-125 mg tablet 1 tab PO BID 7 Days Qty: 14 0RF Discharge Date/Time: 03/10/25 20:26
[2025-03-10 16:05] LABS: MANUAL DIFF FLAG NO
[2025-03-10 16:06] LABS: Hematocrit 33.6 % (37.0-47.0); Hemoglobin 11.8 g/dl (12.0-16.0); Imm Gran Abs Auto 0.01 X10*3/uL (0.00-0.03); Imm Gran Pct Auto 0.2 % (0.0-0.4); Lymphocytes Absolute Auto 2.1 X10*3/uL (1.2-4.9); Mean Corpuscular HGB Conc 35.1 g/dl (31.0-35.0); Mean Corpuscular Hemoglobin 31.6 pg (27.0-33.0); Mean Corpuscular Volume 90.1 fL (80.0-98.0); NRBC Abs Auto 0.000 X10*3/uL (0.0-0.012); NRBC Pct Auto 0.0 /100WBC (0.0-0.2); Platelet Count 211 X10*3/uL (160-400); Red Blood Count 3.73 X10*6/uL (4.20-5.50); White Blood Count 5.7 X10*3/uL (4.8-10.8)
[2025-03-10 16:21] LABS: Alanine Aminotransferase 16 U/L (0-31); Albumin Level 3.9 g/dL (3.5-5.0); Alkaline Phosphatase 45 U/L (39-117); Anion Gap 9 (12-20); Aspartate Amino Transferase 20 U/L (5-31); Blood Urea Nitrogen 11 mg/dL (9-16); Calcium 8.8 mg/dL (8.4-10.2); Carbon Dioxide 28 mmol/L (22-29); Chloride 110 mmol/L (96-108); Creatinine Clr Calc Pharmacy 94.0; Estimated Glomerular Filt Rate > 60; Potassium 4.0 mmol/L (3.3-5.1); Sodium 143 mmol/L (135-145); Total Protein 6.0 g/dL (6.5-8.0)
--- OUTSIDE RECORDS SUMMARY | 2025-03-10 16:33 | XMS_ITS | Clinical Summary ---
Author Organization [facility] Address [address] [place] [address] Care Team Providers Care Electro Mechanical Assembler Name Role Phone Unavailable Primary Care Provider [...] of 3 - 19+ 3-dose series) 2000 COVID-19 Vaccine (2023-2 5 season) 2025 HPV Vaccines (No Doses Required) Completed Pneumococcal Vaccine: Pediat alexa (0-5 Years) and At-Risk Patients (6 to 49 Years) Aged Out No longer eligible b ased on patient's age to complete this topic
== END 2025-03-10 20:26 | disposition left against medical advice (07) ==
PROVIDERS: Physician Assistant Medical; Emergency Provider Emergency Medicine; PCP Internal Medicine
DX: M79.644 Pain in right finger(s) (principal); Z53.21 Procedure and treatment not carried out due to patient leaving prior to being seen by health care provider
CPT/HCPCS: 36415; 73130; 80048; 80076; 85025; 85652; 86140; 99281

== ENCOUNTER → 2025-03-10 15:48 | Outpatient (BNV) | payer MEDICAID, SELFPAY | PROVIDERS: PCP Internal Medicine; Visit Provider Radiology Diagnostic Radiology | DX: R22.31 Localized swelling, mass and lump, right upper limb (principal); M79.644 Pain in right finger(s) | CPT/HCPCS: 73130 ==

== ENCOUNTER 2025-03-10 23:05 | Emergency (ER) | payer MEDICAID, SELFPAY ==
--- NOTE | ~2025-03-10 | XR_ITS ---
CLINICAL HISTORY: pain Left hand, 3 views COMPARISON: None provided FINDINGS: No acute fracture. No dislocation. Chronic appearing distal 5th metacarpal fracture. Unremarkable soft tissues. IMPRESSION: No acute findings. This document has been electronically signed by: Eladio John MD on 03/11/2025 02:07:14
[2025-03-10 23:23] VITALS: BMI 23.5
--- OUTSIDE RECORDS SUMMARY | 2025-03-11 01:00 | XMS_ITS | Clinical Summary ---
Author Organization [facility] Address [address] [place] [address] Care Team Providers Care Seal Extrusion Operator Name Role Phone Unavailable Primary Care [...]
--- NOTE | 2025-03-11 01:26 | ED_ITS ---
HPI - Extremity Problem General Chief complaint: Extremity Problem Stated complaint: B/L hand pain and swelling Time Seen by Provider: 03/11/25 01:15 Source: patient Mode of arrival: ambulatory Limitations: no limitations History of Present Illness ED Provider: DR. 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 Patient also was seen here earlier for persistence of possible infection of the right middle finger after she was scratched by her cat 3 weeks ago patient finished a course of Augmentin and doxycycline then but pain and swelling at the tip of her right middle finger is persisting patient had an x-ray earlier today which reveals no foreign body retention. Patient was seen by ortho twice for evaluation of the right middle finger infection. Related Data Previous Rx's ?Medication ?Instructions ?Recorded azithromycin 250 mg tablet See Rx Instructions PO .COM PLEX #6 02/24/24 tabs doxycycline hyclate 100 mg tablet 100 mg PO BID 7 days #14 tabs 02/19/25 amoxicillin 875 mg-potassium 1 tab PO BID 7 days #14 t abs 02/26/25 clavulanate 125 mg tablet amoxicillin 875 mg-potassium 1 tab PO Q12H #14 tabs clavulanate 125 mg tablet Allergies Allergy/AdvReac Type Severity Reaction Status Date / Time acetaminophen (From TYLENOL) Allergy Unknown NAUSEA & Verified 03/10/25 23:24 VOMITING duloxetine (Cymbalta) Allergy Unknown diarrhea Verified 03/10/25 23:24 Review of Systems Review of Systems: All other systems are reviewed and are negative Constitutional: Reports as per HPI and Reports no additional constitutional complaints Eyes: Reports as per HPI and Reports no additional eye complaints Reports system reviewed and no additional complaints, except as documented Cardiovascular: Reports as per HPI and Reports no additional cardiovascular complaints Respiratory: Reports as per HPI and Reports no additional respiratory complaints Gastrointestinal: Reports as per HPI and Reports no additional gastrointestinal complaints Genitourinary: Reports no additional female genitourinary complaints Musculoskeletal: Reports no additional musculoskeletal complaints Skin/Breast: Reports system reviewed and no additional complaints, except as docu Psychiatric: Reports no additional psychiatric complaints Endocrine: Reports no additional endocrine complaints Hematologic/Lymphatic: Reports no additional hematologic/lymphatic complaints Allergic/Immunologic: Reports no additional allergic/immunologic complaints Reports system reviewed and no additional complaints, except as documented and Reports Abnormal speech present [facility] Past Medical History Medical History Anxiety No known health problems Surgical History No pertinent past surgical history Family History Family History (Reviewed 03/11/25 @ : by Emanuel Alcala MD) Father No problems noted. Mother No problems noted. Paternal Grandmother Diabetes mellitus Paternal Grandfather Diabetes mellitus Son No problems noted. Son No problems noted. Son No problems noted. Social History Social History Housing: Apartment Alcohol intake: never Patient Tobacco Use Status: Current everyday Tobacco user Cigarettes Per Day: 3 e-Cigarette/Vaping Use: Never Used Substance Use Type: Marijuana Advance Directives: No Advance Directives Information Provided: Yes Current occupational status: employed Cognitive needs: No Hearing needs: No Vision needs: No Physical Exam Vital Signs: Vital Signs: BMI result Body Mass Index 23.5 Vital signs have been reviewed and appear to be correct. Blood pressure elevated. Heart rate normal. Respiratory rate normal. Temperature normal. Oxygen saturation normal. Appearance: Alert. Oriented X3. No acute distress. Head: Normal external exam. Normocephalic. Atraumatic. No Yusuf signs noted. No raccoon eyes noted Eyes: PERRLA. EOMI. Conjunctiva and sclera normal. Eyelids normal. ENT: TM's Normal. Pharynx normal. Uvula midline. Moist mucous membranes. No trismus noted. No drooling noted. No muffled voice noted. Neck: Normal inspection. Neck supple. FROM. No adenopathy. Thyroid Normal. No meningeal signs. No neck mass noted. CVS: Normal heart rate and rhythm. Heart sound normal. No murmurs noted. Pulses normal throughout. Respiratory: No respiratory distress. Painless inspiration. Breath sounds normal. No wheezes/rales/rhonchi noted. Chest nontender. No accessory muscle usage noted or decreased air movement noted. Abdomen: Soft and nontender. Bowel sounds normal in all 4 quadrants. No distention noted. No organomegaly noted. No visible injury noted. Back: No CVA tenderness. Full range of motion noted. Skin: Skin warm and dry. Normal skin color. Normal skin turgor. No rashes/lesions/lacerations noted. Extremities: Bilateral upper extremities: 1. Left hand/left wrist exam. No deformity, neurovascularly intact, cap refill less than 2 seconds, patent left radial artery, increased pain with hyperextending the rest with shooting electrical pain with tapping on wrest while it stretched. Right hand: Mild swelling of the distal phalanx of right middle finger, no fluctuation. Neuro: Oriented X 3. Cranial nerve exam: II-XII are grossly intact No motor deficit. No sensory deficit. Reflexes normal. Course Reevaluation(s) Reevaluation #1: Left hand carpal tunnel syndrome. Right middle finger chronic infection. Will repeat another course of Augmentin. Will discharge the patient to follow-up with orthopedic/hand surgeon. Time: 01:35 Medications Administered Discontinued Medications Generic Name Dose Route Start Last Admin Trade Name Freq PRN Reason Stop Dose Admin Ibuprofen 800 mg 03/11/25 01:16 03/11/25 02:11 Ibuprofen 800 Mg Tablet PO 03/11/25 01:17 800 mg ONCE ONE Administration Oxycodone HCl 5 mg 03/11/25 01:16 03/11/25 02:11 Oxycodone Hcl Immed Release 5 Mg Tablet PO 03/11/25 01:17 5 mg ONCE ONE Administration Medical Decision Making Differential Diagnosis Differential Diagnoses: The differential diagnosis associated with the presentation includes (Cat scratch disease, felon, carpal tunnel syndrome.) Admission/Observation Consideration of admission/observation: Escalation of care including admission/observation considered Independent Interpretation I performed an independent interpretation of an: Plain X-Ray (Left hand x-ray:No acute fracture. No dislocation. Chronic appearing distal 5th metacarpal fracture. Unremarkable soft tissues.) Radiology Impression Discussion of test interpretation with radiology: I have reviewed the rad iologist's reading. Discharge Plan Discharge Clinical Impression: Carpal tunnel syndrome, Cellulitis of right middle finger Patient Disposition: Home, Self-Care Instructions: Paronychia (ED), Carpal Tunnel Syndrome (DC) Prescriptions: New amoxicillin-pot clavulanate 875-125 mg tablet 1 tab PO Q12H Qty: 14 0RF No Action azithromycin 250 mg tablet See Rx Instructions PO .COMPLEX Qty: 6 0RF Rx Instructions: For 250 mg dose pack: take 500 mg today (day 1), then 250 mg for 4 days (days 2-5) doxycycline hyclate 100 mg tablet 100 mg PO BID 7 Days Qty: 14 0RF amoxicillin-pot clavulanate 875-125 mg tablet 1 tab PO BID 7 Days Qty: 14 0RF Referrals: Janeth Ramesh MD [Primary Care Provider, Internal Medicine] Marycruz Brooks MD [Physician, Hand Surgery] Stand Alone Forms: Work/School Release Print Language: Hebrew
[2025-03-11] MEDS: oxyCODONE HCl Immed Release 5 MG TABLET PO (02:11)
[2025-03-11 03:20] VITALS: BP 100/64; PULSE 51; RESP 15; TEMP -17.7; TEMP 0; O2SAT 98
== END 2025-03-11 03:21 | disposition home or self-care (01) ==
PROVIDERS: Emergency Provider Emergency Medicine; PCP Internal Medicine
DX: L03.011 Cellulitis of right finger (principal); G56.01 Carpal tunnel syndrome, right upper limb
CPT/HCPCS: 73130; 99283; 99284

== ENCOUNTER → 2025-03-11 01:16 | Outpatient (BNV) | payer MEDICAID, SELFPAY | PROVIDERS: Emergency Provider Emergency Medicine; PCP Internal Medicine; Visit Provider Radiology Diagnostic Radiology | DX: M79.642 Pain in left hand (principal) | CPT/HCPCS: 73130 ==